=== PATIENT | male | born 1955 | race Caucasian/White ===

== ENCOUNTER → 2024-11-21 09:50 | Outpatient (REF) | payer MEDICARE, OTHER, SELFPAY ==
[2024-11-21 10:31] LABS: % Basophils 0.8 % (0-2); % Eosinophils 1.4 % (0-6); % Immature Granulocytes 0.2 % (0-0.5); % Monocytes 9.3 % (1.7-9.3); % Neutrophils 57.3 % (42.2-75.2); Absolute Eosinophils 0.1 10^3/uL (0-0.7); Absolute Lymphocytes 1.6 10^3/uL (1.2-3.4); Absolute Monocytes 0.5 10^3/uL (0.1-0.6); Absolute Neutrophils 2.9 10^3/uL (1.4-6.5); Hemoglobin 14.9 g/dL (13.0-18.0); Mean Corp Hgb Conc. 34.7 g/dL (33.0-37.0); Mean Corpuscular Hgb 32.7 pg (27.0-31.0); Mean Corpuscular Volume 94.3 fL (80.0-94.0); Mean Platelet Volume 10.2 fL (7.4-10.4); Nucleated Red Blood Cells % 0 % (-); Platelet Count 157 10^3/uL (130-400); Red Blood Cell Count 4.56 10^6/uL (4.70-6.10); Red Cell Dist. Width 12.7 % (11.5-14.5); White Blood Cell Count 5.1 10^3/uL (4.8-10.8)
[2024-11-21 10:50] LABS: INR 1.44; PT 18.1 Sec (11.4-14.6)
[2024-11-21 10:52] LABS: ALT (SGPT) 22 U/L (0-50); AST (SGOT) 24 U/L (17-59); Albumin 4.4 g/dl (3.5-5.0); Alkaline Phosphatase 35 U/L (38-126); Blood Urea Nitrogen 14 mg/dl (9-20); Calcium 9.7 mg/dl (8.4-10.2); Carbon Dioxide 31 mmol/L (22-30); Chloride 107 mmol/L (98-107); Glucose 105 mg/dl (70-99); Magnesium 2.1 mg/dl (1.6-2.3); Potassium 4.5 mmol/L (3.5-5.1); Sodium 140 mmol/L (135-145); Total Protein 7.3 g/dl (6.3-8.2); eGFR > 60.00
== END ==
LOC: SDSPAT 09:50
PROVIDERS: ATTENDING PHYSICIAN Internal Medicine Cardiovascular Disease; FAMILY PHYSICIAN Internal Medicine; OTHER PHYSICIAN Internal Medicine Cardiovascular Disease
DX: I48.0 Paroxysmal atrial fibrillation (principal)
CPT/HCPCS: 36415; 75572; 80053; 83735; 85025; 85610; 86850; 86900; 86901; 93005; Q9967

== ENCOUNTER 2024-12-03 08:59 | Day surgery (SDC) | payer MEDICARE, OTHER, SELFPAY ==
[2024-12-03] VITALS (7 sets, daily range): BP systolic 130–152; BP diastolic 83–91; BMI 26.1
--- NOTE | 2024-12-03 12:51 | ITS.CL.PN ---
Weatherization Installer - Procedure Note
Procedure
Procedure Note:
CARDIAC CATHETERIZATION REPORT
Date of Procedure: 12/03/2024
Referring: Dr. Teofilo Gonzalez MD
Indication: pre-operative assessment ahead of aortic surgery
PROCEDURE(S)
1. left heart catheterization
2. coronary angiography
ACCESS: 6F right radial artery (closure: radial band)
CATHETERS
1. 6F AR2
2. 6F JL4
MODERATE SEDATION: 20 minutes of moderate sedation was utilized. An independent medical imaging tech was present to assist with and help manage the patient's level of consciousness and physiologic status.
HEMODYNAMIC DATA
LV 135/8 (EDP 13) mmHg
AO 135/80 (mean 103) mmHg
CORONARY ANGIOGRAPHY
Dominance: Right
LM: Large, normal
LAD: Large vessel giving rise to a moderate caliber diagonal branch and wrapping around the apex. There is no CAD.
LCx: Large vessel giving rise to small OM1, moderate caliber OM2, several small distal OM branches, and a moderate caliber LPL. There is no CAD.
RCA: Large vessel giving rise to a small RPDA and several small RPL branches. There is no CAD.
RADIATION: dose to 98 mGy; DAP 23 Gy*cm2; fluoroscopy time 5 point min
CONCLUSIONS
1. Normal coronary arteries in a right dominant
2. Normal LV filling pressure and no aortic stenosis
RECOMMENDATIONS
1. Proceed with aortic valve surgery
2. Primary prevention of CAD
Copy to: Dr. Dennis Griffin MD (garment alteration examiner); Dr. Teofilo Gonzalez MD (surgery); Dr. Kam Crockett MD (PCP)
Signed: Ramesh Olvera MD, PhD
== END 2024-12-03 15:15 | disposition home or self-care (01) ==
LOC: CATH 08:59
PROVIDERS: ATTENDING PHYSICIAN Student in an Organized Health Care Education/Training Program; FAMILY PHYSICIAN Internal Medicine; OTHER PHYSICIAN Internal Medicine Cardiovascular Disease
DX: Z01.818 Encounter for other preprocedural examination (principal); I71.21 Aneurysm of the ascending aorta, without rupture; Z79.01 Long term (current) use of anticoagulants; I48.91 Unspecified atrial fibrillation; Z79.82 Long term (current) use of aspirin; Z79.899 Other long term (current) drug therapy
CPT/HCPCS: 99152; 93458; C1894; Q9967

== ENCOUNTER → 2024-12-10 11:03 | Outpatient (REF) | payer MEDICARE, OTHER, SELFPAY | LOC: HWRCS 11:03 | PROVIDERS: ATTENDING PHYSICIAN Thoracic Surgery (Cardiothoracic Vascular Surgery); FAMILY PHYSICIAN Internal Medicine | DX: Q25.43 Congenital aneurysm of aorta (principal); Z01.810 Encounter for preprocedural cardiovascular examination | CPT/HCPCS: 93306 ==

== ENCOUNTER 2024-12-24 05:05 | Inpatient (IN) | payer MEDICARE, OTHER, SELFPAY ==
[2024-12-17 08:34] VITALS: BMI 25.9
[2024-12-17 08:56] LABS: Urine Albumin Negative (Neg - Trace); Urine Bilirubin Negative (Negative); Urine Character Clear (Clear); Urine Color Yellow; Urine Glucose Negative (Negative); Urine Ketone Negative (Negative); Urine Leukocyte Negative (Negative); Urine Nitrite Negative (Negative); Urine Occult Blood Negative (Negative); Urine Urobilinogen Negative (Neg - 1+)
[2024-12-17 08:59] LABS: % Basophils 0.7 % (0-2); % Eosinophils 1.4 % (0-6); % Immature Granulocytes 0.2 % (0-0.5); % Lymphocytes 36.9 % (20.5-51.1); % Monocytes 9.2 % (1.7-9.3); % Neutrophils 51.6 % (42.2-75.2); Absolute Eosinophils 0.1 10^3/uL (0-0.7); Absolute Lymphocytes 1.6 10^3/uL (1.2-3.4); Absolute Monocytes 0.4 10^3/uL (0.1-0.6); Absolute Neutrophils 2.2 10^3/uL (1.4-6.5); Hematocrit 41.2 % (39.0-52.0); Hemoglobin 14.4 g/dL (13.0-18.0); Mean Corpuscular Hgb 32.4 pg (27.0-31.0); Mean Corpuscular Volume 92.6 fL (80.0-94.0); Mean Platelet Volume 10.2 fL (7.4-10.4); Nucleated Red Blood Cells % 0 % (-); Platelet Count 143 10^3/uL (130-400); Red Blood Cell Count 4.45 10^6/uL (4.70-6.10); Red Cell Dist. Width 12.6 % (11.5-14.5); White Blood Cell Count 4.3 10^3/uL (4.8-10.8)
[2024-12-17 09:13] LABS: INR 1.31; PT 16.6 Sec (11.4-14.6)
[2024-12-17 09:14] LABS: APTT 30.6 Sec (23.4-35.0)
[2024-12-17 09:21] LABS: ALT (SGPT) 18 U/L (0-50); AST (SGOT) 21 U/L (17-59); Albumin 4.2 g/dl (3.5-5.0); Alkaline Phosphatase 35 U/L (38-126); Blood Urea Nitrogen 12 mg/dl (9-20); Calcium 9.4 mg/dl (8.4-10.2); Carbon Dioxide 27 mmol/L (22-30); Chloride 106 mmol/L (98-107); Direct Bilirubin 0.2 mg/dl (0.0-0.4); Estimated Creatinine Clearance 83 ml/min; Glucose 97 mg/dl (70-99); Potassium 4.1 mmol/L (3.5-5.1); Sodium 138 mmol/L (135-145); Total Bilirubin 0.8 mg/dl (0.2-1.3); eGFR > 60.00
--- NOTE | 2024-12-17 09:46 | CM ---
CM following for DC planning needs.
Met w/ patient and spouse, Edna during PATs for planned CT Surgery.
Patient resides w/ his spouse in a private, 2 STH w/ 2 DELVIS. Bedroom and full bath located on second level of the home, accessible via a FF of stairs.
Patient is functionally indep. at baseline w/ ADLs, mobility without the use of any assisted device.
Patient has RX plan and uses [facility] [address] for prescription needs.
Reviewed pre and post op routines.
Soap, shower instructions, Cardiac Surgery booklet provided.
Discussed post op restrictions to include lifting, driving, flying and sternal precautions.
Reviewed post op MD appointments and visit from CT Transitional Care RN.
Plan is for CT surgery on 12/24.
Antic. DC plan is for home w/ CT Transitional Care RN.
CM to follow.
[2024-12-24] VITALS (7 sets, daily range): BP systolic 93–117; BP diastolic 72–82; BMI 25.3
--- NOTE | 2024-12-24 06:10 | W.CVOR.SURPR ---
CVOR Surgeon Immed Pre Op
-
I have examined this patient prior to performance of the scheduled procedure.
The patient's condition is unchanged from the time of the dictated/written History and
Physical and the patient is able to undergo the scheduled procedure.
VSRR + LA MAZE + SHITAL Clip
--- NOTE | 2024-12-24 06:14 | W.PN.UPDATE ---
Update Note
Progress Note Update
Pt's preop dose of lopressor contraindicated and not given. Pt's HR noted to be in the 40's
[2024-12-24] MEDS: PROTONIX 40 MG PO (06:15)
[2024-12-24] MEDS: MAGNESIUM OXIDE 500 MG PO (06:15)
[2024-12-24] MEDS: BACTROBAN 2% OINTMENT 1 APPLIC NASAL ×2 (06:15→19:59)
--- NOTE | 2024-12-24 06:45 | PTCARENOTE ---
Pt admitted at 0516 this am to CVICU. VS/wt done. Pt clipped and prepped per CVICU protocol. CHG bath done. HR 49-70's. PA made aware. Metoprolol held preoperatively. Other pre-op meds given. and friend, Julius at bedside before OR. Escorted to
CVOR with 2 RNs at 0630. Report to CVOR RNs.
[2024-12-24 07:18] LABS: ACT+ - POC 131 Seconds (82-134)
--- NOTE | 2024-12-24 07:36 | CM ---
Reviewed chart. Mr. Peck is in the operating room today. Prior to admission he resides with his spouse in a two story home with two steps to enter. He has to go up a full flight of steps to get to bedroom/full bathroom. Prior to admission he
was independent with ambulation and adls. He does not have any DME in the home. He has a prescription plan and uses [facility]. Medical work-up in progress. The discharge plan is to return home with his spouse and a home visit by the
Transitional Care Nurse when medically stable.
[2024-12-24 07:41] LABS: Urine Albumin Negative (Neg - Trace); Urine Bilirubin Negative (Negative); Urine Character Clear (Clear); Urine Color Yellow; Urine Glucose Negative (Negative); Urine Ketone Negative (Negative); Urine Leukocyte Negative (Negative); Urine Nitrite Negative (Negative); Urine Occult Blood Negative (Negative); Urine Urobilinogen Negative (Neg - 1+)
[2024-12-24 09:00] LABS: ACT+ - POC 638 Seconds (82-134)
[2024-12-24 09:44] LABS: ACT+ - POC 546 Seconds (82-134)
[2024-12-24 10:09] LABS: Glucose - POC 175 mg/dl (70-99); HCO3 - POC 25 mmol/L (21-28); Hematocrit - POC 35 % PCV (42-52); Hemodilution- POC Yes; Hemoglobin Calculated - POC 11.9; Ionized Calcium - POC 1.12 mmol/L (1.15-1.33); O2 Saturation %Calculated-POC 99.9 % (94-98); PCO2 - POC 37 mmHg (35-48); PO2 - POC 304 mmHg (83-108); POC Comment CPB; Potassium - POC 4.6 mmol/L (3.5-5.1); Sodium - POC 137 mmol/L (136-145); Specimen Type - POC Arterial; pH - POC 7.44 (7.35-7.45)
[2024-12-24 10:15] LABS: ACT+ - POC 520 Seconds (82-134)
[2024-12-24 10:44] LABS: ACT+ - POC 552 Seconds (82-134)
[2024-12-24 10:57] LABS: B.E. - POC 0.1 mmol/L; Glucose - POC 156 mg/dl (70-99); HCO3 - POC 24 mmol/L (21-28); Hematocrit - POC 33 % PCV (42-52); Hemodilution- POC Yes; Hemoglobin Calculated - POC 11.1; Ionized Calcium - POC 1.12 mmol/L (1.15-1.33); Lactate - POC 0.47 mmol/L (0.36-0.75); PCO2 - POC 37 mmHg (35-48); PO2 - POC 360 mmHg (83-108); POC Comment CPB; Potassium - POC 3.7 mmol/L (3.5-5.1); Sodium - POC 135 mmol/L (136-145); Specimen Type - POC Arterial; pH - POC 7.42 (7.35-7.45)
[2024-12-24 11:30] LABS: ACT+ - POC 487 Seconds (82-134)
[2024-12-24 11:58] LABS: ACT+ - POC 629 Seconds (82-134)
[2024-12-24 12:00] LABS: ACT+ - POC > 1003 Seconds (82-134)
[2024-12-24 12:01] LABS: B.E. - POC 2.4 mmol/L; Glucose - POC 135 mg/dl (70-99); HCO3 - POC 27 mmol/L (21-28); Hematocrit - POC 33 % PCV (42-52); Hemodilution- POC Yes; Hemoglobin Calculated - POC 11.1; Ionized Calcium - POC 1.09 mmol/L (1.15-1.33); Lactate - POC < 0.30 mmol/L (0.36-0.75); PCO2 - POC 38 mmHg (35-48); PO2 - POC 544 mmHg (83-108); POC Comment CPB; Potassium - POC 4.7 mmol/L (3.5-5.1); Sodium - POC 136 mmol/L (136-145); Specimen Type - POC Arterial; pH - POC 7.45 (7.35-7.45)
[2024-12-24 12:01] LABS: B.E. - POC -0.9 mmol/L; Glucose - POC 102 mg/dl (70-99); HCO3 - POC 25 mmol/L (21-28); Hematocrit - POC 38 % PCV (42-52); Hemodilution- POC No; Ionized Calcium - POC 1.24 mmol/L (1.15-1.33); Lactate - POC < 0.30 mmol/L (0.36-0.75); O2 Saturation %Calculated-POC 99.9 % (94-98); PCO2 - POC 45 mmHg (35-48); PO2 - POC 285 mmHg (83-108); POC Comment PRE; Potassium - POC 3.5 mmol/L (3.5-5.1); Sodium - POC 137 mmol/L (136-145); Specimen Type - POC Arterial; pH - POC 7.36 (7.35-7.45)
[2024-12-24 12:03] LABS: Glucose - POC 96 mg/dl (70-99); HCO3 - POC 26 mmol/L (21-28); Hematocrit - POC 34 % PCV (42-52); Hemodilution- POC Yes; Hemoglobin Calculated - POC 11.4; Ionized Calcium - POC 1.16 mmol/L (1.15-1.33); Lactate - POC < 0.30 mmol/L (0.36-0.75); PCO2 - POC 43 mmHg (35-48); PO2 - POC 456 mmHg (83-108); POC Comment CPB; Potassium - POC 3.6 mmol/L (3.5-5.1); Sodium - POC 141 mmol/L (136-145); Specimen Type - POC Arterial
[2024-12-24 12:11] LABS: B.E. - POC 2.3 mmol/L; Glucose - POC 99 mg/dl (70-99); HCO3 - POC 26 mmol/L (21-28); Hematocrit - POC 33 % PCV (42-52); Hemodilution- POC Yes; Hemoglobin Calculated - POC 11.3; Ionized Calcium - POC 1.13 mmol/L (1.15-1.33); Lactate - POC < 0.30 mmol/L (0.36-0.75); PCO2 - POC 36 mmHg (35-48); PO2 - POC 479 mmHg (83-108); POC Comment CPB; Potassium - POC 3.4 mmol/L (3.5-5.1); Sodium - POC 140 mmol/L (136-145); Specimen Type - POC Arterial; pH - POC 7.47 (7.35-7.45)
[2024-12-24 12:47] LABS: B.E. - POC 1.2 mmol/L; Glucose - POC 105 mg/dl (70-99); HCO3 - POC 25 mmol/L (21-28); Hematocrit - POC 31 % PCV (42-52); Hemodilution- POC Yes; Hemoglobin Calculated - POC 10.5; Lactate - POC 0.33 mmol/L (0.36-0.75); PCO2 - POC 37 mmHg (35-48); PO2 - POC 422 mmHg (83-108); POC Comment WARM; Potassium - POC 3.5 mmol/L (3.5-5.1); Sodium - POC 141 mmol/L (136-145); Specimen Type - POC Arterial; pH - POC 7.44 (7.35-7.45)
[2024-12-24 12:51] LABS: ACT+ - POC 129 Seconds (82-134)
[2024-12-24 12:55] LABS: B.E. - POC -1.3 mmol/L; Glucose - POC 110 mg/dl (70-99); HCO3 - POC 24 mmol/L (21-28); Hematocrit - POC 34 % PCV (42-52); Hemodilution- POC Yes; Hemoglobin Calculated - POC 11.4; Ionized Calcium - POC 1.25 mmol/L (1.15-1.33); Lactate - POC 1.51 mmol/L (0.36-0.75); O2 Saturation %Calculated-POC 99.7 % (94-98); PCO2 - POC 41 mmHg (35-48); PO2 - POC 200 mmHg (83-108); POC Comment POST; Potassium - POC 3.5 mmol/L (3.5-5.1); Sodium - POC 139 mmol/L (136-145); Specimen Type - POC Arterial; pH - POC 7.38 (7.35-7.45)
--- NOTE | 2024-12-24 13:05 | W.PN.CT.SURG ---
CT Surgery Operative Note
-
CARDIAC SURGERY OPERATIVE REPORT
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
Postoperative Diagnosis: Same
Procedure(s) Performed:
1. Standard sternotomy with aortic and right atrial cannulation
2. Modified left atrial maze [encompass RF ablation clamp]
3. Left atrial appendage exclusion [45 mm device]
4. Valve sparing root replacement [30 mm cardio root graft] - Modified Tay Procedure
5. Aortic valve repair [plication of the right coronary cusp towards the commissure of the right left commissure]
6. Reimplantation of the aortic valve along with reimplantation of left and right coronary buttons
7. Ascending aortic replacement
8. Placement temporary atrial ventricular pacing wires
9. Transesophageal echocardiography
Date of Surgery: 12/24/2024
Comorbidities:
1. 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
2. 4.7 cm ascending aortic aneurysm
3. Paroxysmal atrial fibrillation
4. Peptic ulcer disease
5. Pulmonary nodules
6. PVCs and palpitations
Attending Surgeon: Teofilo Gonzalez MD, MS
Assistants: Karlee Baker PA-C (present and necessary to executive assistant to general counsel, retraction, suction, exposure, suture management, and wound closure under my direction)
Anesthesiology: Kendrick Jhaveri MD and Kristie Swann CRNA
Scrub and Circulating RNs: Miguel Ángel Cross, EDEN, Renate Hartley RN and Dao Bronson RN
Manager Commercial: Quinton Cabral CCP
Anesthesia: GETA
EBL: per perfusion records
Products: None, 250cc of cell saver blood
CPB Time: 241 minutes
Aortic Cross Clamp Time: 216 minutes
Indication(s) for Procedures: This is a 69-year-old male who is otherwise relatively healthy undergoing EP ablation for atrial fibrillation. As part of his preoperative workup he underwent a watchman/replacement CT scan and was found to have a
newly diagnosed 5.5 cm aortic root aneurysm. Ascending aorta was also mildly dilated to 4.7 cm on my measurement. Given this finding, he is referred to me for consideration of aortic root replacement and ablation. We initially had decided on
watchful waiting for several months with repeat imaging as this is his first contrast CT scan. He did have a previous transthoracic echocardiogram which demonstrated a normal functioning aortic valve with trace insufficiency and a root that was
much smaller. He underwent left heart cath as part of his preoperative workup and ultimately called back and requested to have surgery done sooner. He was brought back into the office and we discussed the risk and benefits of a Tay procedure
along with his ablation and he opted to move forward.
Aortic Valve Description: Normal-appearing aortic valve leaflets with minor fenestrations towards the noncoronary cusps at the left none commissure. The left and right coronary ostia within normal anatomic positions. After reimplantation using a
30 mm cardio route Valsalva graft, there was some prolapsing of the right coronary cusp and so I performed a plication stitch with 7-0 Prolene towards the right left commissure in order to shorten the free margin and to raise the leaflet height.
Findings: His left ventricular ejection fraction preoperatively was 65% with no regional wall motion abnormalities. Following surgery his EF remained the same at 65% with no new regional wall motion abnormalities. RV was normal in size and
function. A left atrial maze was performed using the encompass clamp isolating the posterior wall, the ligament of Dandre was also divided. The left atrial appendage was sized to a 45 mm device and clipped flush to the base. The root was fully
mobilized and a deep dissection was performed down towards the base of the ring/aorto ventricular junction. A total of 9 pledgeted 2-0 Ethibond sutures were placed here in order to reinforce the base of the ring and anchor the graft below the
annulus of the aortic valve. These were hand tied. The left non commissure height from the subcommissural triangle at the base of the ring was used to estimate the size of the graft, this was measured to approximately 29 mm and so I used a 30 mm
cardio good Valsalva graft. The commissures were then brought inside the graft and then anchored accordingly based on visual estimation of the appropriate height. I then used 4-0 Prolene starting at the mally of each sinus and running it up
towards the commissure. The sutures were then tied together and anchored here. A total of 2 small [place]-Eddie pledgeted sutures were used in order to smooth out any folds along the suture line. I then tested by placing a suction inside of the LVOT
and found that the valve had good suction and coaptation. Although the height of the right coronary cusp appeared to be somewhat lower and perhaps a little bit prolapsed after reimplanting the valve. A 7-0 stitch was then placed towards the
commissure along the free margin of the right coronary cusp in order to shorten the free margin. The height of the leaflet appeared much more appropriate this point. The left and right coronary buttons were then reimplanted into their neosinuses
using 5-0 Prolene. The ascending aortic was also dilated to 4.6 4.7 cm and so much of the ascending aorta was also resected and the distal anastomosis was performed after beveling the graft accordingly. The suture lines of the right coronary
button as well as the distal anastomosis was reinforced with bovine pericardium. After coming off cardiopulmonary bypass completely and within appropriate arterial pressure, there was the same trace residual aortic valve insufficiency with no
change. The mean gradient across the valve after reimplantation was 3 mmHg. There is normal excursion of all leaflets. Other valves appear to be appropriate. No blood products were given and no inotropic support was required, the patient was on
low-dose Levophed.
Specimen(s): Aorta and Aortic Sinuses.
Prosthesis:
1. 30 mm cardio root Valsalva graft, serial #[id number]
2. Bovine pericardial patch, serial number [id number]
3. 45 mm left atrial appendage clip, serial #[id number]
Description of Procedure: The patient was taken to the operating room. Their identity and procedure to be performed were verified and they were positioned supine on the operating table. Induction via general anesthesia with endotracheal intubation
was performed and central venous access and arterial monitoring were inserted. A preoperative transesophageal echocardiogram was performed to assess cardiac function and valvular function. The patient was then prepped and draped from chin to feet in
a sterile fashion. A preoperative time-out was performed with all members of the team present. A midline chest incision was performed along with median sternotomy. The innominate vein was isolated. Full heparinization was given (a total of 50,000
units). We created a pericardial well. The aortic cannulation site was chosen where it was soft, pliable, and free of calcium. Cannulation was performed with an arterial cannula in the proximal arch of the aorta and a triple-stage venous cannula
through the right atrial appendage. The arterial cannula line had an appropriate bounce and correlating pressures with test dosing. The pulmonary artery was away from the aorta to facilitate a clamp site and aortotomy. Next, a root
vent/antegrade cannula was inserted into the distal ascending aorta. The ACT was confirmed to be over 400 and retrograde autologous priming was performed before commencing cardiopulmonary bypass. At this point the SVC was away from the
right pulmonary artery and the oblique sinus was developed. The encompass clamp was passed underneath the SVC and IVC across the transverse and oblique sinuses and 3 successful pairs of ablation were performed with the encompass clamp. A left
ventricular vent was placed at the right superior pulmonary vein and secured. The aortic cross-clamp was placed after decreasing the flow on the bypass and mean arterial pressure. A total of 1.2L initial dose of antegrade Del-Nido cardioplegia
solution was given and planned for re-dosing every 60 minutes as necessary. There was rapid electro-mechanical arrest of the heart at 300 cc of cardioplegia. The left ventricle was observed for distention on echocardiogram and manual palpation. Cold
slush was placed into a sponge and topically on the RV while we systemically cooled to 34 degrees centigrade. Once the heart was fully arrested was rotated medially and the left atrial appendage was sized to a 45 mm device and applied flush to the
base. The ligament of Dandre was also divided using electrocautery.
Carbon dioxide was used to flood the field. The ascending aorta was fully transected and stay sutures were placed on to facilitate exposure. The location of both left and right coronary vessels were visualized in the root. I then cut down to
approximately 1 cm above each commissure and placed a 4 oh pledgeted suture here they will be used later on for anchoring the valve back into the graft. The noncoronary sinus was then resected leaving approximately 5 to 6 mm cuff of aortic tissue
next to the valve annulus. . The leaflets were excised and sent for pathological assessment. Next, the left main and right coronary buttons were mobilized. 4-0 pledgeted sutures were used to retract the buttons. A deep dissection was then
performed circumferentially down towards the basilar ring at the aorta ventricular junction. I marked the subcommissural triangles at the base of the ring and measured the nonleft commissural height which I found to be approximately 29 mm. a total
of 9 pledgeted 2-0 Ethibond sutures were placed along the base of the ring avoiding the nerve bundle at the membranous septum. The graft was prepared in the notch was created at the intended membranous septum site. The commissures were then
brought inside the graft after placing the sutures circumferentially on the basilar portion and the graft was parachuted into place. These anchoring sutures were then hand tied. I then started to reimplant the valve. I started at the right
coronary cusp at the mally of the sinus and using 4-0 Prolene and ran the sinus in order to prevent any folds and up to each commissure. The anchoring sutures at the commissures was then sewed back down towards the sinus sutures and tied together.
This was repeated at the left sinus and the noncoronary sinus. Any folds were then smoothed out using [place]-Eddie pledgeted sutures. The aortic valve was repaired as described above. Saline was used to fill the root with the LV vent on high suction
where I found that the valve was competent. An eye cautery was used to first create a small opening to perform left main coronary button anastomosis. The button was then trimmed accordingly and using 5-0 Prolene with a bovine pericardial gasket,
the button was reimplanted toward the Richard-left sinus. Once this was complete, the conduit was pressurized to evaluate for hemostasis of the left coronary button. Volume was then used to fill the heart to estimate the location for the right
coronary button anastomosis. In a similar fashion an eye cautery was used to create a small opening in the richard-right sinus and anastomosis was created with 5-0 Prolene running fashion using bovine pericardium as a gasket. The ascending aorta was
then resected and the Valsalva conduit was trimmed accordingly. The distal anastomosis was performed with a running 4-0 Prolene in a single layer using bovine pericardium as a gasket.
De-airing maneuvers were performed and temporary bipolar ventricular pacing wires were placed on the base of the right ventricle and temporary atrial pacing wires at the SVC/Atrial junction. The patient was placed in a Trendelenburg position and
flows on bypass were lowered. The aortic cross clamp was removed and flows were slowly brought back up. The suture lines appeared hemostatic. Transesophageal echocardiography revealed the unchanged trace level of aortic valve insufficiency. Once
de-airing was satisfactory, the left ventricular vent was removed. After verifying acceptable parameters, we initiated weaning from cardiopulmonary bypass. Once we were off cardiopulmonary bypass, the venous cannula was clamped and removed. A test
dose of protamine was administered and the patient was monitored for any adverse reaction before resuming protamine. Once half of the protamine dose was delivered, pump suckers were turned off and the systolic blood pressure was lowered for aortic
decannulation. The aortic cannula was removed and pursestrings were tied down. All cannulation sites were oversewn with a 4-0 prolene. The suture lines were inspected and hemostasis was confirmed. Mediastinal hemostasis was obtained. Two 24Fr Gary
drains were placed within the pericardium and a single 19 [place] Gary drain to the right hemithorax. The sternum was approximated with 4 #7 single and 3 #8 double stainless steel wires. Fascia was approximated with #1 vicryl suture. The
subcutaneous, dermis and epidermis were closed in layers in a running fashion. The skin wound was cleansed and dressed.
All instrument, sponge, and needle counts were confirmed to be correct x 2 at the end of the operation. The patient was transferred to the cardiac intensive care unit in critical but stable condition.
I, Dr. Teofilo Gonzalez, was present, scrubbed for, and performed all critical elements of this procedure.
Teofilo Gonzalez MD, MS
Cardiothoracic Surgeon
[facility] [address]
This dictation was created using the [employer] dictation system. Please excuse any grammatical, typographical, or 'sound alike' errors
[2024-12-24] MEDS: TYLENOL PO (13:20)
[2024-12-24] MEDS: NEURONTIN PO ×2 (13:31→15:08)
--- NOTE | 2024-12-24 13:31 | CON.INTV ---
Consultation
Consultation Request
Date/Time Consultation Requested: 12/24/2024 - 1312
Date/Time Consultation Performed: 12/24/2024 - 1329
Requesting Provider: Rosanna Reyes PA-C
Performing Provider: Dr. Agrawal
Reason for Consultation: s/p valve sparing root replacement + AV-repair
Medical History
-
Chief Complaint: Elective aortic root replacement + aortic valve repair
History of Present Illness:
69-year-old male with a past medical history of aortic root aneurysm, ascending aortic aneurysm without rupture, A-fib and Eliquis, PUD, pulmonary nodules, history of nocturia and PVCs who presents for elective aortic root replacement + aortic valve
repair. Patient known to the cardiothoracic surgery service with last visit on 12/12/[address] Gonzalez. Patient had a prior left heart catheterization here at on 12/03/2024 showing normal coronary arteries and a right dominant system, and normal
LV filling pressures with no aortic stenosis. Subsequent transthoracic echocardiogram on 12/10/2024 showed mildly dilated aortic root and proximal ascending aorta with sinus of Valsalva 4.6 cm, ST junction 4.5 cm, and proximal ascending aorta 4.5
cm. Given the patient's history of this aortic root aneurysm with atrial fibrillation, surgical intervention was recommended and the patient agreed to this procedure. Today, patient underwent standard sternotomy with valve sparing root
replacement, aortic valve repair, reimplantation of the aortic valve along with reimplantation of the left and right coronary buttons, ascending aortic replacement, modified left atrial maze procedure and a left atrial appendage exclusion using a 45
mm device. There were no complications, and the patient was transferred to the CVICU postoperatively for further care. Glass S[employer] services consulted for additional management/recommendations.
When I saw the patient, he was in bed, intubated currently on a pressure support trial on 11/04 and 40% FiO2, with PIP: 11 cmH2O, VTe 538 cc and breathing at 11 breaths/min. Currently on insulin drip at 2 units/hr and Levophed at 2 mcg/min. Current
heart rate 71, BP via A-line: 103/68, PAP 39/20, CO/CI: 3.42/1.65, CVP: 11 and saturating 98%.
PMHx: A-fib on Eliquis, ascending aortic dilatation, PUD, history of H. pylori, valvular heart disease, pulmonary nodules, colonic polyps, history of nocturia, PVCs
PSHx: Bilateral inguinal hernia repair, colonoscopy, endoscopy
Past Medical History
Past Medical History: Other (Above as per HPI)
Past Surgical History: Other (Above as per HPI)
Social History
Tobacco: Non-smoker
Alcohol: Occasional (1-2 glasses of red wine twice a week)
Personal:
Living: With Family
Employment: Retired (Had a [employer])
Family History
Family History: CAD (Father), Cancer (Mother: Pancreatic cancer) and Other (Father: Parkinson disease)
Allergies / Home Medications
Allergies
Allergy/AdvReac Type Severity Reaction Status Date / Time
No Known Allergies Allergy Verified 12/24/24 05:44
Home Medications
�Medication �Instructions �Recorded �Confirmed �Last Taken �Type
apixaban 5 mg tablet (Eliquis) 5 mg PO BID Blood Clot 11/19/24 12/24/24 12/20/24 18:00 History
Prevention/Tx
coenzyme Q10 100 mg capsule 100 mg PO BID Supplement 11/19/24 12/24/24 12/17/24 08:00 History
(CoQ-10)
magnesium 250 mg tablet 250 mg PO BID Electrolyte Repletion 11/19/24 12/24/24 12/17/24 08:00 History
metoprolol succinate 25 mg 12.5 - 25 mg PO DAILYPRN PRN 11/19/24 12/24/24 12/23/24 09:00 History
tablet,extended release 24 hr ATRIAL FIBRILLATION
saw palmetto 160 mg capsule 160 mg PO DAILY Supplement 12/24/24 12/24/24 12/17/24 08:00 History
Review of Systems
-
Unable to Obtain full review of systems at this time due to: Patient Intubation
Vitals / Labs / Diagnostic Testing
Vital Signs
Temp Pulse Resp BP Pulse Ox
97.9 F 49 16 117/79 96
12/24/24 05:16 12/24/24 06:19 12/24/24 05:16 12/24/24 05:16 12/24/24 06:15
Diagnostic Testing:
Physical Exam
-
HEENT: Normocephalic, Anicteric and Other (ETT in place)
Cardiovascular: Peripheral Edema (negative) and Other (Normal rate)
Respiratory: Wheeze (negative), Rales (negative), Rhonchi (negative), Non-Labored Respirations and Other (Mechanical breath sounds heard bilaterally)
GI: Soft, Non Distended, Non Tender and Normal Bowel Sounds
Neurology: Tremors (negative) and Other (Sedated)
Skin: Warm and Dry
General: Respiratory Distress (negative), Comfortable, Fever (negative) and Chills (negative)
Assessment
-
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
aortic valve repair. Patient known to the cardiothoracic surgery service with last visit on 12/12/[address] Gonzalez. Patient had a prior left heart catheterization here at on 12/03/2024 showing normal coronary arteries and a right dominant
system, and normal LV filling pressures with no aortic stenosis. Subsequent transthoracic echocardiogram on 12/10/2024 showed mildly dilated aortic root and proximal ascending aorta with sinus of Valsalva 4.6 cm, ST junction 4.5 cm, and proximal
ascending aorta 4.5 cm. Given the patient's history of this aortic root aneurysm with atrial fibrillation, surgical intervention was recommended and the patient agreed to this procedure. On 12/24/2024, patient underwent standard sternotomy with
valve sparing root replacement, aortic valve repair, reimplantation of the aortic valve along with reimplantation of the left and right coronary buttons, ascending aortic replacement, modified left atrial maze procedure and a left atrial appendage
exclusion using a 45 mm device. There were no complications, and the patient was transferred to the CVICU postoperatively for further care. [employer] S[employer] services consulted for additional management/recommendations.
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 pylori, valvular heart disease, pulmonary nodules, colonic polyps, history of nocturia, PVCs
Impression:
#Aortic root aneurysm in setting of paroxysmal A-fib s/p valve sparing root replacement with aortic valve repair, reimplantation of aortic valve along with reimplantation of left and right coronary buttons, ascending aortic replacement with modified
left atrial MAZE + left atrial appendage exclusion with 45 mm device (POD #0)
#Acute anemia due to above
#Acute, cytopenia due to above
#Paroxysmal A-fib on Eliquis
#Peptic ulcer disease
#PVCs/palpitations
#Subcentimeter pulmonary nodules (4 mm in the left upper lobe, 4 mm in the left lower lobe)
Plan:
Ventilator settings reviewed
FiO2 will be weaned to maintain SpO2 >90-94%
Minute ventilation will be adjusted
Arterial blood gases will be monitored
Spontaneous breathing trial will be attempted with hopeful extubation after anesthesia/sedation wear off
prn nebulized bronchodilators - not currently bronchospastic
Pulmonary artery catheter parameters will be followed
Pressors/antihypertensive/inotropes/diuretics will be provided as needed
Maintain MAP>65
Replete electrolytes with K>4, Mg>2
Monitor chest tube output
Monitor hemoglobin
Monitor platelet count and coags
Transfuse blood products as needed to maintain Hb>7g/dL, plt>50k (given post-operative status)
CT surgery managing chest tubes
Monitor blood sugar to maintain euglycemia with goal BG 110-140
Insulin drip per protocol
Aspiration precautions
VAP prevention protocol
DVT prophylaxis
Early nutrition
Early mobilization
Critical care statement: A total of 41 minutes of critical care time was provided for this patient today. This includes management of ventilator, spontaneous breathing trial, arterial blood gases, pressors, of unstable vital signs, evaluation of the
patient at bedside, reviewing the patient's pertinent medical records including radiographs, microbiology, laboratory evaluations, and discussion with primary team and critical care nursing.
[2024-12-24 13:47] LABS: Glucose - Point of Care 106 mg/dl (70-99)
[2024-12-24 13:57] LABS: B.E. -1.7 mmol/L; HCO3 24.3 mmol/L (21-28); Ionized Calcium 1.16 mMOL/L (1.15-1.33); O2 Saturation % 98.7 % (94-98); PCO2 45 mmHg (35-48); PO2 105 mmHg (83-108); Potassium 3.7 mMOL/L (3.5-5.1); Sodium 132 mMOL/L (136-145); pH 7.34 (7.35-7.45)
[2024-12-24 13:58] LABS: Hematocrit 35.4 % (39.0-52.0); Hemoglobin 12.5 g/dL (13.0-18.0); Platelet Count 97 10^3/uL (130-400)
[2024-12-24] MEDS: LR 250 ML IV ×4 (14:00→18:02)
--- NOTE | 2024-12-24 14:05 | W.PN.CD ---
Addendum entered and electronically signed by Castillo Ritchie MD 12/24/24 16:02:
Patient seen and examined in collaboration with MARKETING DATABASE COORDINATOR; agree with below.
- 69-year-old male with aortic root and ascending aortic aneurysm status-post ascending aortic replacement, aortic valve repair, and valve sparing root replacement--postop day 0.
- Patient remains intubated; on low-dose Levophed.
- Continue routine postsurgical care as directed by CT Surgery.
- Telemetry monitoring; will follow.
Original Note:
Today's Communication / Plan
-
Follow telemetry
Impression / Plan
-
I/P: 69 M from [facility] with paroxysmal atrial fibrillation who was found to have significant dilation of his ascending aorta leading into the root on his preablation CT scan. He is here for scheduled VSRR.
Outpatient liquified natural gas technician: Dr. Griffin
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 Gonzalez 12/24/2024
- Pre-ALETHEA 65%, post ALETHEA 65% without RWMA
- He is on low-dose Levophed
- EKG sinus with nonspecific ST abnormality, rate 69
- Follow telemetry
Paroxysmal atrial fibrillation
- In sinus rhythm, follow telemetry
- He did not tolerate standing doses of metoprolol succinate nor flecainide, he is using metoprolol as needed
- Oral Anticoagulation: Apixaban on hold, last dose 12/20/2024
- [id number]: Score 1 (age 65-74)
- He is interested in ablation to maintain sinus rhythm
PVCs, 1% burden on outpatient Holter
SUBJECTIVE:
Intubated and sedated. Operative notes reviewed.
DATA:
Cardiac catheterization, 12/03/2024:
CONCLUSIONS
1. Normal coronary arteries in a right dominant
2. Normal LV filling pressure and no aortic stenosis
Physical Exam
Vital Signs/Labs
Vital Signs
Temp Pulse Resp BP Pulse Ox
96.5 F L 71 12 117/79 95
12/24/24 13:53 12/24/24 13:50 12/24/24 13:50 12/24/24 05:16 12/24/24 13:52
12/23/24 12/24/24 12/25/24
06:59 06:59 06:59
Actual Weight 84.7 kg
PT 16.6 Sec (11.4-14.6) H 12/17/24 08:24
INR 1.31 12/17/24 08:24
APTT 30.6 Sec (23.4-35.0) 12/17/24 08:24
Physical Exam
Constitutional: No acute distress and Comfortable
EENT: Anicteric and Moist mucous membranes
Cardiovascular: Rhythm & rate is regular, Pedal edema is absent and S1S2 is normal
Respiratory: Lungs clear to auscul.
GI: Soft and Flat
Neuro/Psych: Other (sedated)
Other: Skin (warm and dry)
Data Reviewed
-
Date of Service: December 24, 2024
EKG: Report Reviewed by me
Labs: Labs Reviewed by me
Old Records: Reviewed
[2024-12-24 14:07] LABS: INR 1.88; PT 21.7 Sec (11.4-14.6)
[2024-12-24 14:07] LABS: Glucose - Point of Care 114 mg/dl (70-99)
[2024-12-24 14:08] LABS: APTT 33.7 Sec (23.4-35.0)
[2024-12-24] MEDS: ANCEF 10 IV ×2 (14:16)
[2024-12-24] MEDS: NSS 500 IV (14:16)
[2024-12-24 14:22] LABS: Blood Urea Nitrogen 12 mg/dl (9-20); Estimated Creatinine Clearance 106 ml/min; Glucose 102 mg/dl (70-99); Magnesium 2.7 mg/dl (1.6-2.3)
[2024-12-24] MEDS: KCL 50 IV ×2 (14:32→17:18)
--- NOTE | 2024-12-24 14:38 | PTCARENOTE ---
Patient received from [facility] s/p asc Ao/root replacement/aortic valve repair/MAZE/LAAE. NSR via cm, SaO2 @ 96% on ventilator, FiO2 titrated to 40%. RIJ Cordis/Wedron-Dianne catheter, L radial arterial lines present - leveled, flushed, and calibrated
w/good waveforms returned. Epicardial A+V wires set to DDI backup per surgeon @ 40bpm, no spikes noted. Mediastinal chest tubes x 2, Y-connected to one pleurevac, R pleural chest tube to separate collection chamber - both placed to -20cm suction
w/no air leaks noted. Ashford catheter to gravity. All procedural sites stable. Labs drawn, EKG performed, pcxr obtained. Surgeon updated to cardiac indices. See work list for full assessment, interventions performed. and intravenous infusions and
titrations.
[2024-12-24 15:00] LABS: Glucose - Point of Care 107 mg/dl (70-99)
[2024-12-24] MEDS: CALCIUM GLUCONATE 100 IV (15:07)
[2024-12-24] MEDS: VERSED 0.5 MG IV (15:52)
[2024-12-24 15:53] LABS: Mixed Venous O2 Saturation 66.9 %
[2024-12-24 15:59] LABS: Glucose - Point of Care 106 mg/dl (70-99)
[2024-12-24 16:30] LABS: B.E. -2.4 mmol/L; HCO3 23.2 mmol/L (21-28); O2 Saturation % 99.3 % (94-98); PCO2 42 mmHg (35-48); PO2 114 mmHg (83-108); pH 7.35 (7.35-7.45)
[2024-12-24 17:01] LABS: Glucose - Point of Care 96 mg/dl (70-99)
--- NOTE | 2024-12-24 17:15 | PTCARENOTE ---
Patient awakened, CPAP wean initiated. No apnea noted, patient able to LESTER follow commands. ABG obtained, results conveyed to PA. Patient extubated to 6lnc w/out incident, SaO2 98%. PA updated to hemodynamics, u/o, chest tube drainage.
[2024-12-24 18:00] LABS: Glucose - Point of Care 102 mg/dl (70-99)
--- NOTE | 2024-12-24 18:04 | RESPNOTE ---
Patient extubated to 6L NC after weaning for 30 minutes on cpap/PSV 5/5 at 1640.
[2024-12-24 18:17] LABS: Hematocrit 35.8 % (39.0-52.0); Hemoglobin 12.6 g/dL (13.0-18.0); Platelet Count 125 10^3/uL (130-400)
[2024-12-24] MEDS: LOW STRENGTH ASPIRIN 81 MG PO (19:02)
--- NOTE | 2024-12-24 19:30 | PTCARENOTE ---
assumed care of pt from previous RN. pt drowsy, oriented x4. R IJ cordis w/ swan floated to 45cm. L radial a-line. all lines leveled, zeroed, flushed. SR on tele-monitor. temp epicardial A/V wires plugged into pulse generator w/ backup settings DDI
40/15/0.5/10/0.8. POX 98% on 4 L NC. CTx3 (R pleural, mediastinal x2) to -20cm wall suction, draining sanguineous drainage. abd s/n, hypoactive BS. tolerating PO meds. silvestre catheter draining clear, yellow colored urine. all surgical sites stable,
CDI. PIV intact. see worklist for complete nursing assessment, interventions, gtt titrations, VS, and I&Os.
[2024-12-24] MEDS: ROXICODONE 2.5 MG PO (19:59)
[2024-12-24] MEDS: ANCEF 5 IV (20:00)
[2024-12-24] MEDS: FLEXERIL 5 MG PO (20:00)
[2024-12-24] MEDS: SENOKOT-S PO (20:00)
[2024-12-24] MEDS: ZOFRAN 4 MG IV (20:04)
[2024-12-24 20:12] LABS: Glucose - Point of Care 115 mg/dl (70-99)
[2024-12-24] MEDS: SODIUM BICARBONATE 50 MEQ IV (20:58)
[2024-12-24] MEDS: CALCIUM GLUCONATE 130 MG IV (21:01)
[2024-12-24 22:04] LABS: Glucose - Point of Care 107 mg/dl (70-99)
[2024-12-24 22:27] LABS: Hematocrit 33.6 % (39.0-52.0); Mean Corp Hgb Conc. 35.7 g/dL (33.0-37.0); Mean Corpuscular Hgb 32.6 pg (27.0-31.0); Mean Corpuscular Volume 91.3 fL (80.0-94.0); Mean Platelet Volume 10.6 fL (7.4-10.4); Platelet Count 129 10^3/uL (130-400); Red Blood Cell Count 3.68 10^6/uL (4.70-6.10); Red Cell Dist. Width 12.5 % (11.5-14.5); White Blood Cell Count 14.5 10^3/uL (4.8-10.8)
[2024-12-24 22:34] LABS: INR 1.54; PT 18.7 Sec (11.4-14.6)
[2024-12-24] MEDS: NEURONTIN 100 MG PO (22:50)
[2024-12-24] MEDS: TYLENOL 1000 MG PO (22:50)
[2024-12-24 23:58] LABS: Glucose - Point of Care 90 mg/dl (70-99)
[2024-12-25] VITALS (26 sets, daily range): BP systolic 82–116; BP diastolic 60–81; PULSE 98; O2SAT 98–99; BMI 26.2
--- NOTE | 2024-12-25 | PTCARENOTE ---
assessment remains unchanged. CT drainage WNL. U/O >0.5ml/kg/h.
[2024-12-25 02:00] LABS: Glucose - Point of Care 111 mg/dl (70-99)
[2024-12-25 03:22] LABS: Ionized Calcium 1.24 mMOL/L (1.15-1.33)
[2024-12-25 03:25] LABS: Mixed Venous O2 Saturation 69.1 %
[2024-12-25 03:29] LABS: Hemoglobin 11.8 g/dL (13.0-18.0); Mean Corp Hgb Conc. 35.8 g/dL (33.0-37.0); Mean Corpuscular Hgb 32.7 pg (27.0-31.0); Mean Corpuscular Volume 91.4 fL (80.0-94.0); Mean Platelet Volume 10.7 fL (7.4-10.4); Platelet Count 127 10^3/uL (130-400); Red Blood Cell Count 3.61 10^6/uL (4.70-6.10); Red Cell Dist. Width 12.6 % (11.5-14.5); White Blood Cell Count 12.9 10^3/uL (4.8-10.8)
[2024-12-25 03:33] LABS: PT 18.3 Sec (11.4-14.6)
[2024-12-25 03:50] LABS: Blood Urea Nitrogen 15 mg/dl (9-20); Calcium 8.7 mg/dl (8.4-10.2); Carbon Dioxide 25 mmol/L (22-30); Chloride 109 mmol/L (98-107); Estimated Creatinine Clearance 106 ml/min; Glucose 108 mg/dl (70-99); Magnesium 2.1 mg/dl (1.6-2.3); Potassium 4.4 mmol/L (3.5-5.1); Sodium 137 mmol/L (135-145); eGFR > 60.00
--- NOTE | 2024-12-25 04:06 | W.PN.CT ---
Today's Communication / Plan
-
Plan:
-No major issues overnight. Hemodynamically and neurologically intact
-Successfully extubated last night 12/24 @ 1800
-Was requiring Levophed immediately postop, weaned off overnight, remains on insulin gtt per protocol
-CI 2.37, MVO2 69.1%, u/o since OR 855 mL
-Monitor chest tube drainage: 2meds 280/500, R pleural 260/415
-Cont. current meds (ASA, Lipitor, Amiodarone, BB if bp permits; will likely resume Eliquis on POD#4)
-D/C'd a-line and swan @ 0600
-Will D/C Ashford catheter @ 0600
-Tele phase today when off Insulin gtt
-Maintain cordis
-Maintain temporary A/V wires (will likely cut in 1-2 days)
-Encourage use of IS
-Wean off of O2 as tolerated
-OOB into chair
-Ambulate
Assessment / Plan
-
Assessment:
-S/P Standard sternotomy/Valve sparing root replacement [30 mm cardio root graft] - Modified Tay Procedure/ Aortic valve repair [plication of the right coronary cusp towards the commissure of the right left commissure]/Reimplantation of the
aortic valve along with reimplantation of left and right coronary buttons/Ascending aortic replacement/Modified left atrial maze [encompass RF ablation clamp]/SHITAL clip (45 mm), by Dr. Gonzalez, 12/24/24, pod#1
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
-Ascending aortic aneurysm (4.7 cm)
-LVEF 60-65%
-Paroxysmal atrial fibrillation
-PVCs and palpitations
-Pulmonary nodules
-Peptic ulcer disease
-Colon polyps
-Nocturia
-S/P endoscopy/colonoscopy
-S/P bilateral inguinal herniorrhaphy
-Acute postop blood loss/Anemia (stable without blood transfusion)
-Acute postop thrombocytopenia (stable without active bleed)
-Acute postop atelectasis
-Acute postop hypervolemia with subsequent hypervolemia
Discussed patient care with: Cardiology, Nursing, Respiratory Therapy, Pharmacy and Care Team
Subjective
-
Date of Service: December 25, 2024
Pt c/o incisional pain, otherwise feels well
Objective Data
-
Lab Results
12/25/24 03:12
12/25/24 03:12
PT 18.3 Sec (11.4-14.6) H 12/25/24 03:12
INR 1.50 12/25/24 03:12
APTT 33.7 Sec (23.4-35.0) 12/24/24 13:46
Vital Signs
Vital Signs
Temp Pulse Resp BP Pulse Ox
99.4 F 88 16 101/74 96
12/25/24 03:00 12/25/24 03:30 12/25/24 03:30 12/25/24 03:00 12/25/24 03:[address]
CT Intake/Output/Weight
12/24/24 12/24/24 12/25/24
06:59 18:59 06:59
Intake Total 940.0 / 1695.8 755.8 / 1695.8
Output Total 740 / 1705 965 / 1705
Balance 200.0 / -9.2 -209.2 / -9.2
SaO2: 96 (2L )
Physical Exam
-
General: Awake, Oriented and AOx3
Cardiovascular: Regular rate & rhythm, No Murmurs, No Rub and No Gallop
Respiratory: Decreased Breath Sounds (at bases, otherwise clear )
Sternum: Stable
Incision: Clean, Dry, Intact and Dressing Intact
Extremities: Other (+trace edema)
Data Reviewed
-
Lab Results: Results Reviewed
Medications: Active Meds Reviewed
Chest X-Ray: Report Reviewed and Image Reviewed
ECG: Report Reviewed and Image Reviewed
[2024-12-25] MEDS: ANCEF 5 IV ×2 (04:07→12:16)
[2024-12-25] MEDS: CALCIUM GLUCONATE 100 IV (04:07)
[2024-12-25 04:12] LABS: Glucose - Point of Care 94 mg/dl (70-99)
--- NOTE | 2024-12-25 04:30 | PTCARENOTE ---
no acute changes. VSS. AM labs collected and sent. EKG completed. 2g calcium gluconate to support BP per CT PA.
[2024-12-25 06:13] LABS: Glucose - Point of Care 92 mg/dl (70-99)
[2024-12-25] MEDS: TYLENOL 1000 MG PO ×3 (06:15→21:35)
[2024-12-25] MEDS: PACERONE 400 MG PO ×2 (07:09→21:35)
--- NOTE | 2024-12-25 07:52 | W.PN.ANS.POP ---
Anesthesia Post Operative
- Anesthesia Post Op Note
Vital Signs Stable-See Nursing Note: Yes
Airway Patent: Yes
Adequate Pain Control: Yes
Change in Mental Status: No
Current Postoperative Nausea & Vomiting: No
Anesthesia Complications: No
General Anesthetic Recall: No
Unplanned Admission: No
Post Op Hydration Adequate: Yes
- -
Pt awake, VSS, resting comfortably with no anesthesia related c/o at time of post op visit.
[2024-12-25 08:01] LABS: Glucose - Point of Care 110 mg/dl (70-99)
--- NOTE | 2024-12-25 08:08 | W.PN.INTV ---
Today's Communication / Plan
Recommendations
Up OOB as tolerated
Pain control
Encourage incentive spirometer
Continue CVICU level of care, while on insulin drip. Once downgraded to CVICU-telemetry status and off insulin drip, then we will sign off at that time. Once we sign off, please call back with any questions or concerns.
Assessment
-
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
aortic valve repair. Patient known to the cardiothoracic surgery service with last visit on 12/12/[address] Gonzalez. Patient had a prior left heart catheterization here at on 12/03/2024 showing normal coronary arteries and a right dominant
system, and normal LV filling pressures with no aortic stenosis. Subsequent transthoracic echocardiogram on 12/10/2024 showed mildly dilated aortic root and proximal ascending aorta with sinus of Valsalva 4.6 cm, ST junction 4.5 cm, and proximal
ascending aorta 4.5 cm. Given the patient's history of this aortic root aneurysm with atrial fibrillation, surgical intervention was recommended and the patient agreed to this procedure. On 12/24/2024, patient underwent standard sternotomy with
valve sparing root replacement, aortic valve repair, reimplantation of the aortic valve along with reimplantation of the left and right coronary buttons, ascending aortic replacement, modified left atrial maze procedure and a left atrial appendage
exclusion using a 45 mm device. There were no complications, and the patient was transferred to the CVICU postoperatively for further care. Stock Selector services consulted for additional management/recommendations.
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 pylori, valvular heart disease, pulmonary nodules, colonic polyps, history of nocturia, PVCs
Impression:
#Aortic root aneurysm in setting of paroxysmal A-fib s/p valve sparing root replacement with aortic valve repair, reimplantation of aortic valve along with reimplantation of left and right coronary buttons, ascending aortic replacement with modified
left atrial MAZE + left atrial appendage exclusion with 45 mm device (POD #1)
#Acute anemia due to above
#Acute, cytopenia due to above
#Paroxysmal A-fib on Eliquis
#Peptic ulcer disease
#PVCs/palpitations
#Subcentimeter pulmonary nodules (4 mm in the left upper lobe, 4 mm in the left lower lobe)
Plan:
Patient was extubated on 12/24/2024 to nasal cannula, and now he is currently on room air breathing comfortably, saturating 94-95%
Maintain SpO2 >90-94%
prn nebulized bronchodilators - not currently bronchospastic
Encourage incentive spirometer q1hr while awake
Pulmonary artery catheter parameters will be followed
Pressors/antihypertensive/inotropes/diuretics will be provided as needed
Maintain MAP>65
Replete electrolytes with K>4, Mg>2
Monitor chest tube output (right pleural chest tube x 1 + mediastinal chest tubes x 2)
Monitor hemoglobin
Monitor platelet count and coags
Transfuse blood products as needed to maintain Hb>7g/dL, plt>50k (given post-operative status)
CT surgery managing chest tubes
Monitor blood sugar to maintain euglycemia with goal BG 110-140
Insulin drip per protocol
Aspiration precautions
DVT prophylaxis
Early nutrition
Early mobilization
Continue CVICU level of care, while on insulin drip. Once downgraded to CVICU-telemetry status and off insulin drip, then we will sign off at that time. Once we sign off, please call back with any questions or concerns.
Critical care statement: A total of 37 minutes of critical care time was provided for this patient today. This includes management of ventilator, spontaneous breathing trial, arterial blood gases, pressors, of unstable vital signs, evaluation of the
patient at bedside, reviewing the patient's pertinent medical records including radiographs, microbiology, laboratory evaluations, and discussion with primary team and critical care nursing.
Subjective Dataa
Subjective Data
Date of Service:
Date of Service: December 25, 2024
Chief Complaint: Stock Selector Follow Up
Subjective:
Patient seen this morning. On room air breathing comfortably, saturating 94%. Heart rate 85, BP 94/70. Currently on insulin drip at 0.6 units/hr. No complaints, denying chest pain, WILLS, nausea, fevers or chills. He is drowsy this morning.
Review of Systems
General: Other (Negative unless mentioned above)
Objective Data
Data Reviewed
Vital Signs / I&O / Oxygen:
Vital Signs
Temp Pulse Resp BP Pulse Ox
98.9 F 100 25 86/68 97
12/25/24 08:00 12/25/24 09:11 12/25/24 09:11 12/25/24 09:11 12/25/24 09:00
Intake and Output
12/24/24 12/25/24 12/26/24
06:59 06:59 06:59
Intake Total 1881.4 / 1892.0 35.2 / 35.2
Output Total 1929 / 1979 80 / 80
Balance -48.6 / -88.0 -44.8 / -44.8
SaO2 [CPAP] 98
SaO2 [SIMV] 95
SaO2 97
Nasal Cannula flow liters per 2
minute
Physical Exam
General: Respiratory Distress (negative), Comfortable, Chills (negative) and Sweats (negative)
HEENT: Normocephalic and Anicteric
Cardiovascular: S1-S2 and Peripheral Edema (negative)
Respiratory: Clear, Wheeze (negative), Crackles (negative), Rhonchi (negative) and Non-Labored Respirations
GI: Soft, Non Distended, Non Tender and Normal Bowel Sounds
Neurology: Tremors (negative) and Other (Drowsy)
Skin: Warm and Dry
Labs/Micro/Reports
Lab Data
12/25/24 03:12
12/25/24 03:12
Laboratory Results
12/24/24 12/24/24 12/24/24
13:45 13:46 16:21
PT 21.7 H
INR 1.88
APTT 33.7
pH 7.34 L 7.35
pCO2 45 42
pO2 105 114 H
HCO3 24.3 23.2
O2 Delivery Level
12/24/24 12/25/24
22:16 03:12
PT 18.7 H 18.3 H
INR 1.54 1.50
APTT
pH
pCO2
pO2
HCO3
O2 Delivery Level
[2024-12-25] MEDS: SENOKOT-S 1 TABLET PO ×2 (09:14→19:44)
[2024-12-25] MEDS: NEURONTIN 100 MG PO ×2 (09:14→21:35)
[2024-12-25] MEDS: LOPRESSOR 12.5 MG PO ×2 (09:14→21:35)
[2024-12-25] MEDS: PROTONIX 40 MG PO (09:14)
[2024-12-25] MEDS: LOW STRENGTH ASPIRIN 81 MG PO (09:14)
[2024-12-25] MEDS: MAGNESIUM OXIDE 500 MG PO ×2 (09:14→19:44)
[2024-12-25] MEDS: BACTROBAN 2% OINTMENT 1 APPLIC NASAL ×2 (09:16→19:44)
--- NOTE | 2024-12-25 09:35 | PTCARENOTE ---
assumed care of pt from previous shift RN, sinus rhythm on tele w HR 90's, BP 90's/50's, + peripheral pulses, +1 edema to bilateral upper and lower extremities. Lungs diminished, pox 98% on 2L NC, weaned to RA, coughing and deep breathing
encouraged. +bs, denies nausea. Pt remains DTV. Right IJ cordis w KVO and insulin infusing, PIV flushes easily. CT x3 w minimal amount of red drainage. Surgical sites stable. Pt assisted from bed to chair, tolerated well. Plan of care reviewed and
questions encouraged.
[2024-12-25] MEDS: ProAmatine 5 MG PO ×3 (09:45→18:31)
[2024-12-25 10:16] LABS: Glucose - Point of Care 111 mg/dl (70-99)
--- NOTE | 2024-12-25 11:41 | W.PN.CD ---
Today's Communication / Plan
-
trend tele
resume eliquis when able
Impression / Plan
-
I/P: 69 M from [facility] with paroxysmal atrial fibrillation who was found to have significant dilation of his ascending aorta leading into the root on his preablation CT scan. He is here for scheduled VSRR.
Outpatient control room supervisor: Dr. Griffin
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 Gonzalez 12/24/2024
- Pre-ALETHEA 65%, post ALETHEA 65% without RWMA
- EKG and tele: sinus
Paroxysmal atrial fibrillation
- In sinus rhythm, follow telemetry
- He did not tolerate standing doses of metoprolol succinate nor flecainide; did not tolerate amiodarone; he is using metoprolol as needed as outpatient
- Oral Anticoagulation: Apixaban on hold, last dose 12/20/2024; resume when safe post op
- [id number]: Score 1 (age 65-74)
- He is interested in ablation to maintain sinus rhythm
PVCs, 1% burden on outpatient Holter
DATA:
Cardiac catheterization, 12/03/2024:
CONCLUSIONS
1. Normal coronary arteries in a right dominant
2. Normal LV filling pressure and no aortic stenosis
Physical Exam
Vital Signs/Labs
Vital Signs
Temp Pulse Resp BP Pulse Ox
98.9 F 85 20 88/66 96
12/25/24 08:00 12/25/24 11:01 12/25/24 11:01 12/25/24 11:01 12/25/24 11:00
12/24/24 12/25/24 12/26/24
06:59 06:59 06:59
Actual Weight 84.7 kg 87.7 kg
12/25/24 03:12
12/25/24 03:12
PT 18.3 Sec (11.4-14.6) H 12/25/24 03:12
INR 1.50 12/25/24 03:12
APTT 33.7 Sec (23.4-35.0) 12/24/24 13:46
Magnesium 2.1 mg/dl (1.6-2.3) 12/25/24 03:12
Physical Exam
Constitutional: No acute distress and Comfortable
EENT: Moist mucous membranes
Cardiovascular: Rhythm & rate is regular, Pedal edema is absent, JVD pressure is normal and Systolic murmur absent
Respiratory: Respiratory effort normal and Lungs clear to auscul.
Neuro/Psych: AO x 3
Data Reviewed
-
Date of Service: December 25, 2024
EKG: Other (Tele: SR 80s)
Labs: Labs Reviewed by me
[2024-12-25 12:08] LABS: Glucose - Point of Care 90 mg/dl (70-99)
[2024-12-25] MEDS: NSS 500 IV (12:17)
[2024-12-25] MEDS: ALBUMIN 5% 250 IV (12:48)
--- NOTE | 2024-12-25 12:52 | PTCARENOTE ---
pt bladder scanned for 120ml, BP remains soft. CT PA and Dr. Gonzalez made aware. 250ml albumin administered as ordered.
[2024-12-25 13:59] LABS: Glucose - Point of Care 80 mg/dl (70-99)
[2024-12-25] MEDS: FERRLECIT 110 MG IV (14:04)
[2024-12-25] MEDS: PACERONE PO (16:24)
[2024-12-25] MEDS: NEURONTIN PO (16:24)
--- NOTE | 2024-12-25 17:03 | PTCARENOTE ---
pt assisted OOB to chair with minimal assistance. Pt refusing amiodarone. CT PA made aware.
--- NOTE | 2024-12-25 20:00 | PTCARENOTE ---
assumed care of pt from previous RN. pt A&Ox4, resting in bed at time of assessment. SR on tele-monitor. temp epicardial A/V wires insulated. POX 91-92% on RA. CTx3 (R pleural, mediastinal x2) to -20cm wall suction, draining sanguineous drainage.
abd s/n, hypoactive BS. pt voiding misty colored urine. all surgical sites stable, CDI. R IJ cordis w/ KVO. PIV intact. see worklist for complete nursing assessment, interventions, VS, and I&Os.
[2024-12-25] MEDS: MYLICON 160 MG PO (21:35)
[2024-12-26] VITALS (20 sets, daily range): BP systolic 90–116; BP diastolic 66–81; PULSE 89; O2SAT 96–99; BMI 26.2
--- NOTE | 2024-12-26 00:08 | PTCARENOTE ---
assessment remains unchanged. VSS. CT drainage WNL.
--- NOTE | 2024-12-26 04:00 | PTCARENOTE ---
no acute changes. VSS. AM labs collected and sent.
[2024-12-26 04:10] LABS: Hematocrit 29.3 % (39.0-52.0); Hemoglobin 10.5 g/dL (13.0-18.0); Mean Corp Hgb Conc. 35.8 g/dL (33.0-37.0); Mean Corpuscular Hgb 33.1 pg (27.0-31.0); Mean Corpuscular Volume 92.4 fL (80.0-94.0); Platelet Count 101 10^3/uL (130-400); Red Blood Cell Count 3.17 10^6/uL (4.70-6.10); Red Cell Dist. Width 12.7 % (11.5-14.5); White Blood Cell Count 12.9 10^3/uL (4.8-10.8)
[2024-12-26 04:20] LABS: Blood Urea Nitrogen 21 mg/dl (9-20); Calcium 8.8 mg/dl (8.4-10.2); Carbon Dioxide 30 mmol/L (22-30); Chloride 104 mmol/L (98-107); Estimated Creatinine Clearance 106 ml/min; Glucose 130 mg/dl (70-99); Magnesium 2.1 mg/dl (1.6-2.3); Potassium 4.7 mmol/L (3.5-5.1); Sodium 135 mmol/L (135-145); eGFR > 60.00
[2024-12-26] MEDS: TYLENOL 1000 MG PO (06:36)
--- NOTE | 2024-12-26 07:48 | W.PN.CT ---
Today's Communication / Plan
-
-pod #2
-no issues overnight, doing well
-CT outputs: 2 meds 180/460, R pleur 25/295 in 12 hrs
-no drips
-low BP 80s-90s on 12/25- started on Midodrine 5 tid
-wean off O2 as tolerated - pOx 94% on 1L
-current meds (ASA, iv iron, Midodrine 5 tid, Lopressor 12.5 bid, Amio 400 tid, Protonix)
-encourage OOB, IS
Assessment / Plan
-
Assessment:
-S/P Standard sternotomy/Valve sparing root replacement [30 mm cardio root graft] - Modified Tay Procedure/ Aortic valve repair [plication of the right coronary cusp towards the commissure of the right left commissure]/Reimplantation of the
aortic valve along with reimplantation of left and right coronary buttons/Ascending aortic replacement/Modified left atrial maze [encompass RF ablation clamp]/SHITAL clip (45 mm), by Dr. Gonzalez, 12/24/24, pod#2
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
-Ascending aortic aneurysm (4.7 cm)
-LVEF 60-65%
-Paroxysmal atrial fibrillation
-PVCs and palpitations
-Pulmonary nodules
-Peptic ulcer disease
-Colon polyps
-Nocturia
-S/P endoscopy/colonoscopy
-S/P bilateral inguinal herniorrhaphy
-RLE chronic neuropathy
-Acute postop blood loss/Anemia (stable without blood transfusion)
-Acute postop thrombocytopenia (stable without active bleed)
-Acute postop atelectasis
-Acute postop hypovolemia with subsequent hypervolemia
Discussed patient care with: Nursing and Care Team
Subjective
-
Date of Service: December 26, 2024
Objective Data
-
Lab Results
06/26/25 03:28
12/26/24 03:28
PT 18.3 Sec (11.4-14.6) H 12/25/24 03:12
INR 1.50 12/25/24 03:12
APTT 33.7 Sec (23.4-35.0) 12/24/24 13:46
Vital Signs
Vital Signs
Temp Pulse Resp BP Pulse Ox
98.7 F 92 14 104/77 93
12/26/24 04:00 12/26/24 06:27 12/26/24 04:00 12/26/24 06:27 12/26/24 06:00
CT Intake/Output/Weight
12/25/24 12/26/24 12/26/24
18:59 06:59 18:59
Intake Total 453.0 / 543.0 90 / 543.0
Output Total 850 / 1435 585 / 1435
Balance -397.0 / -892.0 -495 / -892.0
SaO2: 93
Physical Exam
-
General: Awake and AOx3
Cardiovascular: Regular rate & rhythm and No Murmurs
Respiratory: Decreased Breath Sounds
Sternum: Stable
Incision: Clean, Dry and Intact
Extremities: No Edema (2+ DPs b/l. Has chronic R foot neuropathy (unable to plantar flex))
Abdomen: soft, nontender, nondistended, + bowel sounds
Data Reviewed
-
Lab Results: Results Reviewed
Medications: Active Meds Reviewed
Chest X-Ray: Report Reviewed and Image Reviewed
ECG: Report Reviewed and Image Reviewed
--- NOTE | 2024-12-26 08:00 | PTCARENOTE ---
pt received from previous RN, oriented, OOB in chair. SR on the monitor, HR 90s. A&V wires insulated. SBP 90s. palpable pulses, trace LE edema, +1 UE edema. pt on RA, 94% POX. lungs clear, shallow breaths. IS encouraged. CTx3, no air leak or
crepitus noted. pt abdomen s/n, denies n/v. poor appetite, +BS. voids. sternal incision LEIGHA. chest tube site c/d/i. RIJ cordis maintained. PIV. see worklist for VS, I&O, and assessment.
[2024-12-26] MEDS: SENOKOT-S 1 TABLET PO ×2 (09:29→19:51)
[2024-12-26] MEDS: TOPROL XL 12.5 MG PO ×2 (09:29→19:51)
[2024-12-26] MEDS: PROTONIX 40 MG PO (09:29)
[2024-12-26] MEDS: LASIX 20 MG IV (09:29)
[2024-12-26] MEDS: NEURONTIN 100 MG PO ×2 (09:29→16:17)
[2024-12-26] MEDS: LOW STRENGTH ASPIRIN 81 MG PO (09:29)
[2024-12-26] MEDS: ProAmatine 5 MG PO ×3 (09:29→17:05)
[2024-12-26] MEDS: MAGNESIUM OXIDE 500 MG PO ×2 (09:29→19:52)
[2024-12-26] MEDS: PACERONE 400 MG PO ×3 (09:30→22:21)
[2024-12-26] MEDS: BACTROBAN 2% OINTMENT 1 APPLIC NASAL ×2 (09:30→19:51)
[2024-12-26] MEDS: LOPRESSOR PO (09:38)
--- NOTE | 2024-12-26 10:03 | W.PN.CD ---
Today's Communication / Plan
-
remains in sinus
SBP in 90s. without symptoms
Continue to monitor
Continue post op car as per CT surgery
Impression / Plan
-
I/P: 69 M from [facility] with paroxysmal atrial fibrillation who was found to have significant dilation of his ascending aorta leading into the root on his preablation CT scan. He is here for scheduled VSRR.
Outpatient sewer pipe layer helper: Dr. Griffin
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 Gonzalez 12/24/2024
- Pre-ALETHEA 65%, post ALETHEA 65% without RWMA
- Stable post pof remainsin sinus
- post op care per CT surgery
Paroxysmal atrial fibrillation
- In sinus rhythm, follow telemetry
- He did not tolerate standing doses of metoprolol succinate nor flecainide; did not tolerate amiodarone; he is using metoprolol as needed as outpatient
- Oral Anticoagulation: Apixaban on hold, last dose 12/20/2024; resume when safe post op
- [id number]: Score 1 (age 65-74)
- He is interested in eventual ablation to maintina sinus
.
post op anemia- monitor
PVCs, 1% burden on outpatient Holter
DATA:
Cardiac catheterization, 12/03/2024:
CONCLUSIONS
1. Normal coronary arteries in a right dominant
2. Normal LV filling pressure and no aortic stenosis
Physical Exam
Vital Signs/Labs
Vital Signs
Temp Pulse Resp BP Pulse Ox
98.1 F 92 18 97/74 94
12/26/24 08:00 12/26/24 09:41 12/26/24 08:00 12/26/24 09:41 12/26/24 08:00
12/25/24 12/26/24 12/27/24
06:59 06:59 06:59
Actual Weight 87.7 kg 87.6 kg
12/26/24 03:28
12/26/24 03:28
PT 18.3 Sec (11.4-14.6) H 12/25/24 03:12
INR 1.50 12/25/24 03:12
APTT 33.7 Sec (23.4-35.0) 12/24/24 13:46
Magnesium 2.1 mg/dl (1.6-2.3) 12/26/24 03:28
Physical Exam
Constitutional: No acute distress
Cardiovascular: Rhythm & rate is regular
Respiratory: Wheeze Absent and Rhonchi Absent
GI: Soft
Neuro/Psych: Alert
Data Reviewed
-
Date of Service: December 26, 2024
Medical Decision Making: Reviewed Test Results
Medical Tests (PFT, Pathology etc): Report Reviewed by me
Labs: Labs Reviewed by me
[2024-12-26] MEDS: FLEXBUMIN 50 IV (11:39)
--- NOTE | 2024-12-26 12:00 | PTCARENOTE ---
pt VSS, no changes in assessment. pt placed back to bed, R pleural CT dc'd as ordered. Med CTs remain in place, dressing changed, c/d/i. 25% albumin given as ordered, ordered Lasix given. voids misty colored urine. pt ambulated in hallway w/ RN.
[2024-12-26] MEDS: FERRLECIT 110 MG IV (14:04)
[2024-12-26] MEDS: TYLENOL PO ×2 (14:05→22:21)
[2024-12-26] MEDS: NSS 500 IV (16:17)
[2024-12-26 16:28] LABS: Glucose - Point of Care 119 mg/dl (70-99)
--- NOTE | 2024-12-26 16:34 | PTCARENOTE ---
pt VSS, OOB in chair. pt c/o 'feeling shaky', VS completed, BS 119. SOCIAL HUMAN SERVICES ASSISTANTS aware. voids in urinal.
[2024-12-26] MEDS: MILK OF MAGNESIA 30 ML PO (18:37)
--- NOTE | 2024-12-26 18:40 | PTCARENOTE ---
pt ambulated in hallway. pt c/o constipation, PRN MoM given.
--- NOTE | 2024-12-26 19:45 | PTCARENOTE ---
assumed care of pt from previous RN. pt A&Ox4, resting in chair at time of assessment. SR w/ first degree AVB on tele-monitor. temp epicardial A/V wires insulated. POX 95% on RA. CT x2 (mediastinal x2) to -20cm wall suction, draining sanguineous
drainage. abd s/n, +BS. pt confirms poor appetite. voiding misty colored urine. all surgical sites stable. R IJ cordis w/ KVO. PIV intact.
[2024-12-26] MEDS: NEURONTIN PO (22:21)
[2024-12-27] VITALS (21 sets, daily range): BP systolic 78–106; BP diastolic 59–75; PULSE 79–80; O2SAT 99; BMI 26.2
--- NOTE | 2024-12-27 | PTCARENOTE ---
assessment remains unchanged. VSS. CT drainage WNL. no c/o pain at this time.
--- NOTE | 2024-12-27 04:00 | PTCARENOTE ---
no acute changes. VSS. pt voided in bathroom. AM labs collected and sent.
[2024-12-27 04:22] LABS: Hematocrit 26.4 % (39.0-52.0); Hemoglobin 9.5 g/dL (13.0-18.0); Mean Corpuscular Hgb 33.1 pg (27.0-31.0); Mean Platelet Volume 11.5 fL (7.4-10.4); Platelet Count 104 10^3/uL (130-400); Red Blood Cell Count 2.87 10^6/uL (4.70-6.10); Red Cell Dist. Width 12.4 % (11.5-14.5); White Blood Cell Count 12.7 10^3/uL (4.8-10.8)
[2024-12-27 04:28] LABS: Blood Urea Nitrogen 20 mg/dl (9-20); Calcium 8.3 mg/dl (8.4-10.2); Carbon Dioxide 27 mmol/L (22-30); Chloride 103 mmol/L (98-107); Estimated Creatinine Clearance 106 ml/min; Glucose 121 mg/dl (70-99); Magnesium 2.1 mg/dl (1.6-2.3); Sodium 132 mmol/L (135-145); eGFR > 60.00
[2024-12-27] MEDS: TYLENOL PO ×3 (06:57→22:01)
--- NOTE | 2024-12-27 08:00 | PTCARENOTE ---
pt received from previous RN, oriented, OOB in chair. SR on the monitor, HR 80s. A&V wires insulated. SBP 90s. palpable pulses, trace LE edema, +1 UE edema, L>R. pt on RA, 97% POX. lungs clear. IS encouraged. CTx2, no air leak or crepitus noted. pt
abdomen s/n, denies n/v. +BS. +large BM. voids. 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 chest tube site c/d/i. RIJ cordis maintained. PIV. see worklist for VS, I&O, and assessment.
--- NOTE | 2024-12-27 08:18 | W.PN.CT ---
Today's Communication / Plan
-
-pod #3
-no issues overnight, doing well
-CT outputs: 2 meds 110/360 in 12/24 hrs
-no drips
-low BP 90s-100s - started on Midodrine 5 tid
-weaned off O2
-Echo today
-current meds (ASA, iv iron, Midodrine 5 tid, Toprol XL 12.5 bid, Amio 400 tid, Protonix)
-encourage OOB, IS, ambulate
Assessment / Plan
-
Assessment:
-S/P Standard sternotomy/Valve sparing root replacement [30 mm cardio root graft] - Modified Tay Procedure/ Aortic valve repair [plication of the right coronary cusp towards the commissure of the right left commissure]/Reimplantation of the
aortic valve along with reimplantation of left and right coronary buttons/Ascending aortic replacement/Modified left atrial maze [encompass RF ablation clamp]/SHITAL clip (45 mm), by Dr. Gonzalez, 12/24/24, pod#3
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
-Ascending aortic aneurysm (4.7 cm)
-LVEF 60-65%
-Paroxysmal atrial fibrillation
-PVCs and palpitations
-Pulmonary nodules
-Peptic ulcer disease
-Colon polyps
-Nocturia
-S/P endoscopy/colonoscopy
-S/P bilateral inguinal herniorrhaphy
-RLE chronic neuropathy
-Acute postop blood loss/Anemia (stable without blood transfusion)
-Acute postop thrombocytopenia (stable without active bleed)
-Acute postop atelectasis
-Acute postop hypovolemia with subsequent hypervolemia
Discussed patient care with: Nursing and Care Team
Subjective
-
Date of Service: December 27, 2024
Objective Data
-
Lab Results
12/27/24 03:38
12/27/24 03:38
PT 18.3 Sec (11.4-14.6) H 12/25/24 03:12
INR 1.50 12/25/24 03:12
APTT 33.7 Sec (23.4-35.0) 12/24/24 13:46
Vital Signs
Vital Signs
Temp Pulse Resp BP Pulse Ox
98.8 F 86 18 93/71 97
12/27/24 07:45 12/27/24 08:00 12/27/24 07:45 12/27/24 07:44 12/27/24 07:45
CT Intake/Output/Weight
12/26/24 12/27/24 12/27/24
18:59 06:59 18:59
Intake Total 220 / 310 90 / 310
Output Total 1075 / 1485 410 / 1485
Balance -855 / -1175 -320 / -1175 10 10
SaO2: 97
Physical Exam
-
General: Awake and AOx3
Cardiovascular: Regular rate & rhythm and No Murmurs
Respiratory: Decreased Breath Sounds
Sternum: Stable
Incision: Clean, Dry and Intact
Abdomen: soft, nontender, nondistended, + bowel sounds
Extremities: No Edema (2+ DPs b/l. Has chronic R foot neuropathy (unable to plantar flex))
Data Reviewed
-
Lab Results: Results Reviewed
Medications: Active Meds Reviewed
Chest X-Ray: Report Reviewed and Image Reviewed
ECG: Report Reviewed and Image Reviewed
[2024-12-27] MEDS: PROTONIX 40 MG PO (08:44)
[2024-12-27] MEDS: ProAmatine 5 MG PO ×3 (08:44→17:34)
[2024-12-27] MEDS: TOPROL XL 12.5 MG PO ×2 (08:44→19:18)
[2024-12-27] MEDS: LOW STRENGTH ASPIRIN 81 MG PO (08:44)
[2024-12-27] MEDS: MAGNESIUM OXIDE 500 MG PO ×2 (08:44→19:18)
[2024-12-27] MEDS: SENOKOT-S PO ×2 (08:44→19:18)
[2024-12-27] MEDS: PACERONE 400 MG PO ×3 (08:45→22:03)
[2024-12-27] MEDS: BACTROBAN 2% OINTMENT 1 APPLIC NASAL ×2 (08:45→19:19)
[2024-12-27] MEDS: NEURONTIN PO ×3 (08:47→22:01)
[2024-12-27] MEDS: LASIX 20 MG IV (10:08)
[2024-12-27] MEDS: KCL 10 MEQ PO (10:08)
--- NOTE | 2024-12-27 10:28 | PTCARENOTE ---
pt placed back to bed. A&V wire pulled by CHATO Wnyne. q15min VS completed, DESIGN MAINTENANCE ENGINEER aware of CT output. Med CTs dc'd as ordered, dressing c/d/i. CHRISTY cordis dc'd as ordered, dressing c/d/i.
--- NOTE | 2024-12-27 12:29 | PTCARENOTE ---
pt VSS, OOB in chair. at bedside. no c/o pain. ambulates independently.
[2024-12-27] MEDS: NSS IV (12:57)
--- NOTE | 2024-12-27 14:20 | W.PN.CD ---
Today's Communication / Plan
-
resume eliquis when safe post op
tele
Impression / Plan
-
I/P: 69 M from [facility] with paroxysmal atrial fibrillation who was found to have significant dilation of his ascending aorta leading into the root on his preablation CT scan. He is here for scheduled VSRR.
Outpatient perfect binder setter: Dr. Griffin
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 Gonzalez 12/24/2024
- Pre-ALETHEA 65%, post ALETHEA 65% without RWMA
-stable
Paroxysmal atrial fibrillation
- In sinus rhythm with PAC's: follow telemetry
- He did not tolerate standing doses of metoprolol succinate nor flecainide; did not tolerate amiodarone; he is using metoprolol as needed as outpatient
- Oral Anticoagulation: Apixaban on hold, last dose 12/20/2024; resume when safe post op
- [id number]: Score 1 (age 65-74)
- He is interested in eventual ablation to maintain sinus
Hypotension
-chronic: now on midodrine
PVCs, 1% burden on outpatient Holter
DATA:
Cardiac catheterization, 12/03/2024:
CONCLUSIONS
1. Normal coronary arteries in a right dominant
2. Normal LV filling pressure and no aortic stenosis
Physical Exam
Vital Signs/Labs
Vital Signs
Temp Pulse Resp BP Pulse Ox
98 F 76 18 96/66 99
12/27/24 11:24 12/27/24 14:00 12/27/24 11:24 12/27/24 11:15 12/27/24 11:24
12/26/24 12/27/24 12/28/24
06:59 06:59 06:59
Actual Weight 87.6 kg 87.7 kg
12/27/24 03:38
12/27/24 03:38
PT 18.3 Sec (11.4-14.6) H 12/25/24 03:12
INR 1.50 12/25/24 03:12
APTT 33.7 Sec (23.4-35.0) 12/24/24 13:46
Magnesium 2.1 mg/dl (1.6-2.3) 12/27/24 03:38
Physical Exam
Constitutional: No acute distress and Comfortable
EENT: Moist mucous membranes
Cardiovascular: Rhythm & rate is regular, Pedal edema is absent, JVD pressure is normal and Systolic murmur absent
Respiratory: Respiratory effort normal and Lungs clear to auscul.
Neuro/Psych: AO x 3
Data Reviewed
-
Date of Service: December 27, 2024
EKG: Other (Tele: SR with PAC's)
Labs: Labs Reviewed by me
[2024-12-27] MEDS: FERRLECIT 110 MG IV (15:20)
[2024-12-27] MEDS: KCL 20 MEQ PO (15:30)
[2024-12-27] MEDS: LASIX 40 MG IV (15:30)
--- NOTE | 2024-12-27 15:45 | PTCARENOTE ---
pt VSS, ECHO completed, 2V CXR completed. pt ambulates independently. voids. no c/o pain.
--- NOTE | 2024-12-27 16:30 | CM ---
dc plan remain home when medically stable and a f/u visit with the transitional care nurse.
--- NOTE | 2024-12-27 20:00 | PTCARENOTE ---
Resumed care of pt sitting up in chair AAOx3. HR in the 70's in NSR with Prolonged QT on the monitor. Lungs dec @ bases. POX 98% on RA. + bowel round abd. Sternal site with surg glue open to air. CT sites with dressing intact. Rt IJ cordis site with
dressing intact. Left radial site open to air, ecchymosis noted, trace edema. Palpable peripheral pulses present. trace LE edema noted. Pt using urinal/ ambulatory to bathroom when needed. Left AC int capped. No issues to report at this time. Pt
reports pain at tolerable level. Will continue to monitor.
--- NOTE | 2024-12-27 20:43 | PTCARENOTE ---
Pt requesting to ambulate. BP sitting in chair 88/62. BP standing 85/60. Ambulatory about 30 feet, pt denied any complaints of feeling dizzy or lightheaded. Pt assisted to bed. Upon laying down BP 78/59. HR remains in the 80's. Pt remains
asymptomatic. Will continue to monitor closely. Ann-Marie GARCIA notified. No new orders at this time.
[2024-12-28 04:41] VITALS: BP 89/70
[2024-12-28 04:42] VITALS: BP 89/70
--- NOTE | 2024-12-28 04:52 | PTCARENOTE ---
Pt sleeping comfortably overnight. Pt denies any complaints. BP remains soft. HR remains in the 70's in NSR on the monitor. No changes in assessment noted at this time. Will continue to monitor.
[2024-12-28 05:11] LABS: Hematocrit 24.7 % (39.0-52.0); Hemoglobin 8.7 g/dL (13.0-18.0); Mean Corp Hgb Conc. 35.2 g/dL (33.0-37.0); Mean Corpuscular Hgb 32.8 pg (27.0-31.0); Mean Corpuscular Volume 93.2 fL (80.0-94.0); Mean Platelet Volume 11.2 fL (7.4-10.4); Platelet Count 127 10^3/uL (130-400); Red Blood Cell Count 2.65 10^6/uL (4.70-6.10); Red Cell Dist. Width 12.6 % (11.5-14.5); White Blood Cell Count 8.8 10^3/uL (4.8-10.8)
[2024-12-28] MEDS: TYLENOL PO ×2 (05:18→14:42)
[2024-12-28 05:26] LABS: Blood Urea Nitrogen 20 mg/dl (9-20); Calcium 7.5 mg/dl (8.4-10.2); Carbon Dioxide 25 mmol/L (22-30); Chloride 106 mmol/L (98-107); Estimated Creatinine Clearance 93 ml/min; Glucose 105 mg/dl (70-99); Magnesium 2.1 mg/dl (1.6-2.3); Potassium 3.6 mmol/L (3.5-5.1); Sodium 135 mmol/L (135-145); eGFR > 60.00
[2024-12-28 06:00] VITALS: BMI 25.9
[2024-12-28 07:51] VITALS: BP 102/74
[2024-12-28] MEDS: CALCIUM GLUCONATE 100 IV (07:51)
[2024-12-28] MEDS: KCL 40 MEQ PO (07:52)
[2024-12-28] MEDS: PROTONIX 40 MG PO (07:52)
[2024-12-28] MEDS: LOW STRENGTH ASPIRIN 81 MG PO (07:52)
[2024-12-28] MEDS: MAGNESIUM OXIDE 500 MG PO (07:52)
[2024-12-28] MEDS: ProAmatine 5 MG PO ×2 (07:52→14:06)
[2024-12-28] MEDS: PACERONE 400 MG PO (07:52)
[2024-12-28] MEDS: TOPROL XL 12.5 MG PO (07:52)
[2024-12-28] MEDS: SENOKOT-S PO (07:53)
[2024-12-28] MEDS: LASIX 40 MG IV (07:53)
[2024-12-28] MEDS: BACTROBAN 2% OINTMENT 1 APPLIC NASAL (07:53)
[2024-12-28] MEDS: NEURONTIN PO (07:53)
--- NOTE | 2024-12-28 08:31 | W.PN.CT ---
Addendum entered and electronically signed by Tremayne Enciso MD 12/28/24 08:50:
I saw and examined the patient.
The PA's note was reviewed and I agree with the note.
Comment:
Doing well.� Ambulating.� Minor low BP on midodrine TID.� IV diuresis today.� D/C planning for home tomorrow
CXR: new small right basilar effusion/atelectasis, L clear.�
Original Note:
Today's Communication / Plan
-
-pod #4
-no issues overnight, doing well. Pt really wants to go home today
-low BP, but ambulated in a hallway without sxs- on Midodrine 5 tid
-no drips
-weaned off O2
-small b/l pleural effusions - diuresed 12/27 with bid 40 iv Lasix
-gave 2g Calcium, 40 po KCL this am (K 3.6), ordered 40 iv bid Lasix.
-pt states that RLE has chronic edema and neuropathy. He wears TEDs at home
-current meds (ASA, Midodrine 5 tid, Toprol XL 12.5 bid, Amio 200 tid, Protonix)
-encourage OOB, IS, ambulate
-possible d/c today
Assessment / Plan
-
Assessment:
-S/P Standard sternotomy/Valve sparing root replacement [30 mm cardio root graft] - Modified Tay Procedure/ Aortic valve repair [plication of the right coronary cusp towards the commissure of the right left commissure]/Reimplantation of the
aortic valve along with reimplantation of left and right coronary buttons/Ascending aortic replacement/Modified left atrial maze [encompass RF ablation clamp]/SHITAL clip (45 mm), by Dr. Gonzalez, 12/24/24, pod#4
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
-Ascending aortic aneurysm (4.7 cm)
-LVEF 60-65%
-Paroxysmal atrial fibrillation
-PVCs and palpitations
-Pulmonary nodules
-Peptic ulcer disease
-Colon polyps
-Nocturia
-S/P endoscopy/colonoscopy
-S/P bilateral inguinal herniorrhaphy
-RLE chronic neuropathy
-Acute postop blood loss/Anemia (stable without blood transfusion)
-Acute postop thrombocytopenia (stable without active bleed)
-Acute postop atelectasis
-Acute postop small b/l pleural effusions
-Acute postop hypovolemia with subsequent hypervolemia
Discussed patient care with: Nursing and Care Team
Subjective
-
Date of Service: December 28, 2024
Objective Data
-
Lab Results
12/28/24 04:48
12/28/24 04:48
PT 18.3 Sec (11.4-14.6) H 12/25/24 03:12
INR 1.50 12/25/24 03:12
APTT 33.7 Sec (23.4-35.0) 12/24/24 13:46
Vital Signs
Vital Signs
Temp Pulse Resp BP Pulse Ox
99.7 F 80 18 102/74 91
12/28/24 04:41 12/28/24 07:52 12/28/24 04:41 12/28/24 07:52 12/28/24 04:42
CT Intake/Output/Weight
12/27/24 12/28/24 12/28/24
18:59 06:59 18:59
Intake Total 520 / 520
Output Total 1200 / 1200
Balance -680 / -680
SaO2: 91
Physical Exam
-
General: Awake and AOx3
Cardiovascular: Regular rate & rhythm, No Murmurs and No Rub
Respiratory: Rales (at bases b/l. No wheeze)
Sternum: Stable
Incision: Clean, Dry and Intact
Extremities: Other (1+ edema on R (chronic, wears TEDs at home) and trace on L)
Data Reviewed
-
Lab Results: Results Reviewed
Medications: Active Meds Reviewed
Chest X-Ray: Report Reviewed and Image Reviewed
ECG: Report Reviewed and Image Reviewed
--- NOTE | 2024-12-28 09:27 | PTCARENOTE ---
Pt received from sod stripper RN. Pt is Ox3 and appropriate, very motivated to go home today. Received 40 IV Lasix this AM and Ca and potassium were repleted. NSR on tele, trace LE and hand edema. BP improved. 97% on RA, lungs are clear. Pt using
urinal without difficulty. Pt had 2 BM's yesterday. Pt walking to the bathroom with a one person assist. Sternal incision intact. Iv sites intact.
--- NOTE | 2024-12-28 13:43 | W.DCSUMMARY ---
Discharge Summary
Discharge Data
Date of Admission: 12/24/24
Date of Discharge: 12/28/24
Total time spent discharging patient (in min): 47
-
Pending Results: Yes
Additional Pending Results:
2 view chest x-ray in 1 week
Hospital Course
Patient was admitted electively and underwent a modified TAVR procedure with a ascending aortic aneurysm repair and valve sparing root replacement with a #30 Valsalva graft, Maze procedure, left atrial appendage exclusion by Dr. Teofilo Gonzalez on
12/24/2024. Please refer to his separately dictated operative report for complete details. Postoperatively the patient was transferred to the ICU on low-dose Levophed. He was extubated per usual protocol. He was weaned from his vasoactive
infusions into the morning of postoperative day #1.
Postoperative day #1: Invasive monitoring lines and Ashford catheter removed, insulin drip was discontinued, the patient was transferred to telemetry status. He continued to progress along the usual postoperative pathway.
Postoperative day #2: Right chest tube was removed. Patient was started on beta-blockers. He was given 25% albumin as well as low-dose Lasix.
Postoperative day #3: Remaining chest tubes epicardial pacing wires and Cordis introducer were discontinued. The patient was gently diuresed. Follow-up echocardiogram revealed a competent aortic valve and normal left ventricular ejection fraction.
Chest x-ray showed no right pleural effusion however small left pleural effusion. Patient was again diuresed.
Postoperative day #4: Patient was cleared for discharge to home after intravenous Lasix in the morning. He will be discharged on 1 weeks course of oral Lasix with potassium replacement. Discharge instructions were reviewed in detail with the
patient and his questions were answered to his satisfaction prior to him leaving today. We will plan on obtaining a two-view chest x-ray this coming week to follow-up on his small pleural effusions.
Discharge Plan
-
Patient Disposition: Home (Routine Discharge)
Discharge Diagnosis/Procedures: -Status post Standard sternotomy/Valve sparing root replacement [30 mm cardio root graft] - Modified Tay Procedure/ Aortic valve repair [plication of the right coronary cusp towards the commissure of the right left
commissure]/Reimplantation of the aortic valve along with reimplantation of left and right coronary buttons/Ascending aortic replacement/Modified left atrial maze [[facility]compass Radiofrequency ablation clamp]/Left atrial appendageclip (45 mm), by
Gonzalez, 12/24/24
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
-Ascending aortic aneurysm (4.7 cm)
-LVEF 60-65%
-Paroxysmal atrial fibrillation
-Premature ventricular complexess and palpitations
-Pulmonary nodules
-Peptic ulcer disease
-Colon polyps
-Nocturia
-Status post endoscopy/colonoscopy
-Status post bilateral inguinal herniorrhaphy
-Right lower extremity chronic neuropathy
-Acute Postoperative blood loss/Anemia (stable without blood transfusion)
-Acute Postoperative thrombocytopenia (stable without active bleed)
-Acute Postoperative atelectasis
-Acute Postoperative small Bilateral pleural effusions
-Acute Postoperative hypovolemia with subsequent hypervolemia
Diet: Low Fat and Low Cholesterol
Activity: As tolerated and No strenuous activity
Driving Restrictions: Not until seen by your Dr
Bathing Restrictions: OK to Shower
Others Tests: Obtain 2 view chest x-ray in 1 week
Other Services: Cardiac Rehab
Wound Care: Shower daily. Use soap & water. No lotions, creams or powders on incision area.
Specialty Instructions: Weigh Daily- Call MD for wt gain/loss 3 lbs overnight/5 lbs in 1 week
Activity Restrictions/Additional Instructions:
ACTIVITY:
-No strenuous activity: no heavy lifting, pushing, pulling anything over 15 pounds for one month
-continue to use stairs as tolerated
DRIVING RESTRICTIONS:
-No driving for one month or until approved by your surgeon
WOUND CARE:
-Shower daily. Use soap & water.
-No lotions, creams or powders on incision area.
DIET:
-continue a low fat/low cholesterol diet.
-IF you are diabetic, continue carb controlled diet.
CARDIAC REHAB:
-Please make appointment to start in 5-6 weeks with your local hospital program. (See Cardiac Rehabilitation Discharge Booklet).
- Please call to make appointments for Phase II Cardiac Rehab:
[facility]
[phone]
SPECIALTY INSTRUCTIONS:
-Weigh yourself daily. Call your physician for any weight gain/loss of 3 lbs overnight or 5 lbs in one week.
-REPORT any clicking noise or uneven appearance of your sternum to your surgeon immediately.
-If you smoke, you are instructed to quit. The [place] smoking hotline phone number is [phone]
Referrals:
CT Transitional Care Nurse [Outside] - in one to two days
Referral Note:
The Cardiothoracic Transitional Care Nurse will call you to set up a visit in 1-2 days.
Kam Crockett MD [Family Provider, Internal Medicine] - in four to six weeks
Referral Note: Please make an appointment in four to six weeks.
Mynor Griffin MD [Active, Cardiology] - 02/03/25 1:20 pm
Teofilo Gonzalez MD [Active, Cardiac Surgery] - 01/27/25 1:45 pm
Prescriptions:
New
acetaminophen 325 mg Tablet
650 mg PO Q4HPRN PRN (Reason: mild pain,headache,temp >101F ) Qty: 60 0RF
midodrine 5 mg Tablet
5 mg PO TID@0800,1300,1800 Qty: 90 2RF
aspirin 81 mg Tablet,Chewable
81 mg PO DAILY Qty: 30 0RF
metoprolol succinate 25 mg Tablet Extended Release 24 Hr
12.5 mg PO BID Qty: 30 2RF
oxycodone 5 mg Tablet
5 mg PO Q4HPRN PRN (Reason: moderate pain) 7 Days Qty: 28 0RF
potassium chloride [K-Tab] 20 mEq tablet extended release
20 meq PO DAILY 7 Days Qty: 7 0RF
furosemide [Lasix] 40 mg tablet
40 mg PO DAILY Qty: 7 0RF
Continued
magnesium 250 mg Tablet
250 mg PO BID
coenzyme Q10 [CoQ-10] 100 mg Capsule
100 mg PO BID
Eliquis 5 mg Tablet
5 mg PO BID
saw palmetto 160 mg Capsule
160 mg PO DAILY
Discontinued
metoprolol succinate 25 mg Tablet Extended Release 24 Hr
12.5 - 25 mg PO DAILYPRN PRN (Reason: ATRIAL FIBRILLATION)
Discharge Orders:
Discharge Patient (As Directed); Ordered 12/28/24
Ordered By: Mynor Lopez
Care Plan Goals
Care Plan Goals:
Problem: Readiness for enhanced knowledge related to diagnosis and treatment plan
Goal: Understand your diagnosis and treatment plan needs, including medications if applicable.
Instructions: Know your diagnosis, underlying causes and treatment plan options, including medications if applicable. Consult with your health care team to learn about your diagnosis and treatment plan, including medications if applicable.
Discharge Date and Time
Print Language: LAO
--- NOTE | 2024-12-28 14:29 | W.PN.CD ---
Today's Communication / Plan
-
discharge planning
resume arvind coronado
Impression / Plan
-
I/P: 69 M from [facility] with paroxysmal atrial fibrillation who was found to have significant dilation of his ascending aorta leading into the root on his preablation CT scan. He is here for scheduled VSRR.
Outpatient internal communications intern: Dr. Griffin
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 Gonzalez 12/24/2024
- Pre-ALETHEA 65%, post ALETHEA 65% without RWMA
-stable
Paroxysmal atrial fibrillation
- In sinus rhythm with PAC's: follow telemetry
- He did not tolerate standing doses of metoprolol succinate nor flecainide; did not tolerate amiodarone; he is using metoprolol as needed as outpatient
- Oral Anticoagulation: Apixaban on hold, last dose 12/20/2024; resume when safe post op
- [id number]: Score 1 (age 65-74)
- He is interested in eventual ablation to maintain sinus
Hypotension
-chronic: now on midodrine
PVCs, 1% burden on outpatient Holter
DATA:
Cardiac catheterization, 12/03/2024:
CONCLUSIONS
1. Normal coronary arteries in a right dominant
2. Normal LV filling pressure and no aortic stenosis
Physical Exam
Vital Signs/Labs
Vital Signs
Temp Pulse Resp BP Pulse Ox
98.1 F 76 18 102/74 98
12/28/24 08:00 12/28/24 10:00 12/28/24 04:41 12/28/24 07:52 12/28/24 09:47
12/27/24 12/28/24 12/29/24
06:59 06:59 06:59
Actual Weight 87.7 kg 86.7 kg
12/28/24 04:48
12/28/24 04:48
PT 18.3 Sec (11.4-14.6) H 12/25/24 03:12
INR 1.50 12/25/24 03:12
APTT 33.7 Sec (23.4-35.0) 12/24/24 13:46
Magnesium 2.1 mg/dl (1.6-2.3) 12/28/24 04:48
Physical Exam
Constitutional: No acute distress and Comfortable
EENT: Moist mucous membranes
Cardiovascular: Rhythm & rate is regular, Pedal edema is absent, JVD pressure is normal and Systolic murmur absent
Respiratory: Respiratory effort normal and Lungs clear to auscul.
Neuro/Psych: AO x 3
Data Reviewed
-
Date of Service: December 28, 2024
EKG: Other (Tele: SR 70s)
Labs: Labs Reviewed by me
== END 2024-12-28 15:09 | disposition home or self-care (01) | DRG 220 ==
LOC: CVICU 05:05
PROVIDERS: Anesthesiology; Physician Assistant; Physician Assistant Surgical; ADMITTING PHYSICIAN Thoracic Surgery (Cardiothoracic Vascular Surgery); CONSULT PHYSICIAN Internal Medicine Critical Care Medicine; FAMILY PHYSICIAN Internal Medicine
PROC: 02L70CK Occlusion of Left Atrial Appendage with Extraluminal Device, Open Approach (ICD-10-PCS; 2024-12-24)
PROC: 02580ZZ Destruction of Conduction Mechanism, Open Approach (ICD-10-PCS; 2024-12-24)
PROC: 5A1221Z Performance of Cardiac Output, Continuous (ICD-10-PCS; 2024-12-24)
PROC: B24BZZ4 Ultrasonography of Heart with Aorta, Transesophageal (ICD-10-PCS; 2024-12-24)
PROC: 02RX0JZ Replacement of Thoracic Aorta, Ascending/Arch with Synthetic Substitute, Open Approach (ICD-10-PCS; 2024-12-24)
DX: Q25.43 Congenital aneurysm of aorta (principal); D62 Acute posthemorrhagic anemia; J98.11 Atelectasis; J90 Pleural effusion, not elsewhere classified; I48.0 Paroxysmal atrial fibrillation; I49.3 Ventricular premature depolarization; K27.9 Peptic ulcer, site unspecified, unspecified as acute or chronic, without hemorrhage or perforation; R91.1 Solitary pulmonary nodule; G57.81 Other specified mononeuropathies of right lower limb; I71.21 Aneurysm of the ascending aorta, without rupture; D69.59 Other secondary thrombocytopenia; E86.1 Hypovolemia; E87.70 Fluid overload, unspecified; I95.89 Other hypotension; Z79.01 Long term (current) use of anticoagulants; Z79.899 Other long term (current) drug therapy; Z82.49 Family history of ischemic heart disease and other diseases of the circulatory system
CPT/HCPCS: 88304; 93308; 36415; 71045; 71046; 80048; 80053; 81003; 82248; 82330; 82565; 82805; 82810; 82947; 82962; 83036; 83735; 84132; 84302; 84520; 85014; 85018; 85025; 85027; 85049; 85610; 85730; 86850; 86900; 86901; 86920; 87070; 93005; 93312; 93320; 93321; 93325; 93880; 94002; J2916; P9045; P9047

== ENCOUNTER → 2025-01-06 10:18 | Outpatient (REF) | payer MEDICARE, OTHER, SELFPAY | LOC: HWRAD 10:18 | PROVIDERS: ATTENDING PHYSICIAN Thoracic Surgery (Cardiothoracic Vascular Surgery); FAMILY PHYSICIAN Internal Medicine | DX: J98.4 Other disorders of lung (principal) | CPT/HCPCS: 71046 ==

== ENCOUNTER → 2025-01-07 09:52 | Outpatient (REF) | payer MEDICARE, OTHER, SELFPAY ==
[2025-01-07 14:37] VITALS: BP 124/87; BP_SYST 82
[2025-01-07 15:22] VITALS: BP 106/74
== END ==
LOC: RADI 09:52
PROVIDERS: ATTENDING PHYSICIAN Thoracic Surgery (Cardiothoracic Vascular Surgery); FAMILY PHYSICIAN Internal Medicine
DX: J90 Pleural effusion, not elsewhere classified (principal); R06.02 Shortness of breath; I31.39 Other pericardial effusion (noninflammatory)
CPT/HCPCS: 32555; 71045; 93306

== ENCOUNTER → 2025-01-15 09:50 | Outpatient (REF) | payer MEDICARE, OTHER, SELFPAY | LOC: HWRAD 09:50 | PROVIDERS: ATTENDING PHYSICIAN Internal Medicine; REFERRING PHYSICIAN Thoracic Surgery (Cardiothoracic Vascular Surgery) | DX: J90 Pleural effusion, not elsewhere classified (principal) | CPT/HCPCS: 71046 ==

== ENCOUNTER → 2025-01-17 07:18 | Outpatient (REF) | payer MEDICARE, OTHER, SELFPAY ==
[2025-01-17 07:47] VITALS: BP 130/88; BP_SYST 94
[2025-01-17 08:15] VITALS: BP 130/91
== END ==
LOC: RADI 07:18
PROVIDERS: ATTENDING PHYSICIAN Thoracic Surgery (Cardiothoracic Vascular Surgery); FAMILY PHYSICIAN Internal Medicine
DX: J90 Pleural effusion, not elsewhere classified (principal)
CPT/HCPCS: 32555; 71045

== ENCOUNTER → 2025-02-03 13:45 | Outpatient (REF) | payer MEDICARE, OTHER, SELFPAY | LOC: RAD 13:45 | PROVIDERS: ATTENDING PHYSICIAN Internal Medicine; OTHER PHYSICIAN Internal Medicine Cardiovascular Disease; REFERRING PHYSICIAN Thoracic Surgery (Cardiothoracic Vascular Surgery) | DX: J90 Pleural effusion, not elsewhere classified (principal); R05.2 Subacute cough | CPT/HCPCS: 71048 ==

== ENCOUNTER → 2025-02-05 07:17 | Outpatient (REF) | payer MEDICARE, OTHER, SELFPAY ==
[2025-02-05 07:40] VITALS: BP 104/75; BP_SYST 85
[2025-02-05 08:02] VITALS: BP 109/85; BP_SYST 98
== END ==
LOC: RADI 07:17
PROVIDERS: ATTENDING PHYSICIAN Thoracic Surgery (Cardiothoracic Vascular Surgery)
DX: J90 Pleural effusion, not elsewhere classified (principal)
CPT/HCPCS: 32555; 71045

== ENCOUNTER 2025-03-17 14:26 | Outpatient (RCR) | payer MEDICARE, OTHER, SELFPAY | END 2025-03-17 23:59 | disposition home or self-care (01) | LOC: CRHB 14:26 | PROVIDERS: ATTENDING PHYSICIAN Internal Medicine Cardiovascular Disease | DX: Z95.2 Presence of prosthetic heart valve (principal) | CPT/HCPCS: G0422; G0423 ==